=== PATIENT | female | born 1990 | race African-American/Black ===

== ENCOUNTER 2018-04-08 10:56 | Emergency (ER) | payer OTHER ==
--- OUTSIDE RECORDS SUMMARY | 2018-04-08 10:59 | XMS REPORT | Clinical Summary ---
:1990 Author Organization [facility] Address [address] [place] [address] Care Team Providers Name Role Phone Annemarie Mujica DO Primary Care Provider Allergies Active Allergy Reactions Severity Noted Date Comments Codeine 01/14/2016 Swelling Morphine 01/14/2016 Hives Hydrocodone-Acetaminophen 11/28/2017 Nausea Tramadol 01/14/2016 Hives Current Medications Prescription Sig. Disp. Refills Start Date End Date Status pantoprazole Take 40 mg by Active (PROTONIX) 40 MG EC mouth daily. tablet famotidine (PEPCID) 20 Take 20 mg by Active MG tablet mouth 2 (two) times a day. BISMUTH SUBSALICYLATE Take by mouth. Active (MAALOX TOTAL RELIEF, BISMUTH, ORAL) calcium carbonate Chew 1 tablet Active (TUMS) 200 mg calcium daily. (500 mg) chewable tablet MULTIVITAMIN ORAL Take by mouth. Active CALCIUM Take by mouth. Active CARBONATE/VITAMIN D3 (CALCIUM 500 WITH D ORAL) CYANOCOBALAMIN, Take by mouth. Active VITAMIN B-12, (VITAMIN B-12 ORAL) FERROUS SULFATE (IRON Take 29 mg by Active ORAL) mouth. LACTOBACILLUS Take by mouth. Active COMBINATION NO.8 (ADULT PROBIOTIC ORAL) [id number]-[id number]-trbaq-susie-c Active hit-msm 2,500 mcg kit esomeprazole (NexIUM) Take 40 mg by 11/28/2017 Discontinued 40 MG capsule mouth daily before breakfast. 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/28/2017 Encounters Date Type Specialty Care Team Description 12/08/2017 Telephone General Surgery Jose David Knapp MD 12/07/2017 Hospital Encounter Radiology Jose David Knapp Gastroesophageal reflux MD Francisco disease, esophagitis presence not specified 11/28/2017 Office Visit General Surgery Jose David Knapp Gastroesophageal reflux disease, esophagitis presence not specified (Primary Dx); MD Francisco Hernia, hiatal; History of sleeve gastrectomy 11/28/2017 Orders Only General Surgery Jose David Knapp Gastroesophageal reflux MD Francisco disease, esophagitis presence not specified (Primary Dx) after 04/07/2017 Family History Medical History Relation Name Comments Hypertension Mother Relation Name Status Comments Mother Social History Tobacco Use Types Packs/Day Years Used Date Never Smoker Smokeless Tobacco: Never Used Alcohol Use Drinks/Week oz/Week Comments No Sex Assigned at Date Recorded Not on file Last Filed Vital Signs Vital Sign Reading Time Taken Blood Pressure 136/87 11/28/2017 9:52 AM BREAKDOWN PERSON Pulse 79 11/28/2017 9:52 AM BREAKDOWN PERSON Temperature 36.7 C (98 F) 11/28/2017 9:52 AM BREAKDOWN PERSON Respiratory Rate - - Oxygen Saturation - - Inhaled Oxygen Concentration - - Weight 90.7 kg (200 lb) 11/28/2017 9:52 AM BREAKDOWN PERSON Height 170.2 cm (5' 7") 11/28/2017 9:52 AM BREAKDOWN PERSON Body Mass Index 31.32 11/28/2017 9:52 AM BREAKDOWN PERSON Plan of Treatment Health Maintenance Due Date Last Done Comments CERVICAL CANCER SCREENING 2009 INFLUENZA VACCINE 06/07/2018 Results [place] Upper GI (12/07/2017 9:01 AM) Specimen Performing Laboratory [address] [address] Narrative EXAMINATION:[place] UPPER GI CLINICAL HISTORY:K21.9 Gastro-esophageal reflux disease without esophagitis , GERD COMPARISON:None. Fluoroscopy time: 2.3 minutes with 17 fluoroscopic images FINDINGS: Patient ingested thin barium in upright position and recumbent B[place]LETT drinking position without difficulty. There is no esophageal mass or stricture. Esophageal peristalsis is within normal limits. Expected changes are present in the proximal stomach related to Kartik fundoplication. Patient is status post sleeve gastrectomy. There is normal passage of contrast from the esophagus into the stomach. There is no hiatal hernia. No gastroesophageal reflux noted under fluoroscopy. No gastric mass or stricture present. There is normal emptying of the stomach. The opacified duodenum and proximal small bowel loops are unremarkable. A barium tablet was also administered with water. The barium tablet was held up in the distal esophagus but eventually passed into the stomach after drinking additional water. IMPRESSION: Satisfactory appearance status post Kartik fundoplication and sleeve gastrectomy. See above. [facility]-[id number] Procedure Note Hm Interface, Radiology Results Incoming - 12/07/2017 9:25 AM BREAKDOWN PERSON EXAMINATION: [place] UPPER GI CLINICAL HISTORY: K21.9 Gastro-esophageal reflux disease without esophagitis, GERD COMPARISON: None. Fluoroscopy time: 2.3 minutes with 17 fluoroscopic images FINDINGS: Patient ingested thin barium in upright position and recumbent B[place]TT drinking position without difficulty. There is no esophageal mass or stricture. Esophageal peristalsis is within normal limits. Expected changes are present in the proximal stomach related to Kartik fundoplication. Patient is status post sleeve gastrectomy. There is normal passage of contrast from the esophagus into the stomach. There is no hiatal hernia. No gastroesophageal reflux noted under fluoroscopy. No gastric mass or stricture present. There is normal emptying of the stomach. The opacified duodenum and proximal small bowel loops are unremarkable. A barium tablet was also administered with water. The barium tablet was held up in the distal esophagus but eventually passed into the stomach after drinking additional water. IMPRESSION: Satisfactory appearance status post Kartik fundoplication and sleeve gastrectomy. See above. [facility]-[id number] after 04/07/2017 Insurance Payer Benefit Plan / Group Subscriber ID Type Phone Address [employer]ERCIAL [facility] COMMERCIAL xxxxxxxxxxx Commercial Home: [address] [place], [place] [phone] [place] [address]
--- OUTSIDE RECORDS SUMMARY | 2018-04-08 10:59 | XMS REPORT ---
:1990 Author Organization [employer] Care Team Providers Name Role Phone Mujica, Na Provider Role Unavailable Allergies, Adverse Reactions, Alerts Substance Reaction Event Type tramadol Info Not Available Drug Allergy codeine Info Not Available Drug Allergy MORPHINE Info Not Available Drug Allergy Problems Problem Type Condition Code Onset Dates Condition Status Assessment Iron deficiency anemia, unspecified D50.9 Active iron deficiency anemia type Assessment Adult general medical examination Z00.00 Active Assessment History of gastric bypass Z98.84 Active Assessment Fatigue, unspecified type R53.83 Active Problem Iron deficiency anemia, unspecified D50.9 Active iron deficiency anemia type Problem Adult general medical examination Z00.00 Active Problem History of gastric bypass Z98.84 Active Problem PTSD (post-traumatic stress F43.10 Active disorder) Problem Depression with anxiety F41.8 Active Problem Obese E66.9 Active Problem Low back pain M54.5 Active Medications Medication Code Code Instructions Start End Status Dosage System Date Date Ferrous [facility] 20185328146 325 (65 Fe) MG Active 1 tablet Sulfate Orally Once a day Zanaflex [facility] [id number] 2 MG Orally Active 1 capsule Three times a as needed day Sonata [facility] [id number] 10 MG Orally Active 1 capsule Once a day at bedtime as needed Results No Known Results Summary Purpose [employer] Submission
[2018-04-08 12:10] LABS: Absolute Lymphocytes (CBC) 1.2 K/uL (0.7-4.9); Absolute Monocytes 0.6 K/uL (0.1-1.3); Absolute Neutrophil 3.2 K/uL (1.8-8.0); Basophils % 0.5 % (0-1.3); Eosinophils % 0.9 % (0-4.4); Hematocrit 41.2 % (36.0-45.0); Lymphocytes % 23.4 % (15.3-44.8); MCV 93.5 fL (80-100); MPV 8.1 fL (7.6-11.3); Monocytes % 11.8 % (3.3-12.3)
[2018-04-08 12:12] LABS: Urine Bacteria 20-50 /HPF (<20); Urine Culture Reflex Order REFLEXED; Urine RBC <5 /HPF (NONE SEEN)
[2018-04-08] MEDS ORDERED: NA CHLORIDE 0.9% 1,000 ML ONE (12:21)
[2018-04-08] MEDS ORDERED: DIPHENHYDRAMINE 50 MG/ML VIAL ONE (12:21)
[2018-04-08] MEDS ORDERED: METOCLOPRAMIDE 10 MG/2mL INJ ONE (12:21)
[2018-04-08 12:26] LABS: Bicarbonate 28 mEq/L (21-31); Glucose Level 86 mg/dL (65-120); Lipase 24 U/L (22-51); Potassium 3.6 mEq/L (3.6-5.0); Sodium Level 137 mEq/L (135-145)
[2018-04-08 12:32] LABS: ALT/SGPT 16 IU/L (10-60); AST/SGOT 19 IU/L (10-42); Albumin 4.1 g/dL (3.2-5.5); Alkaline Phosphatase 94 IU/L (42-121); Amylase Level 92 U/L (28-100); BUN Blood Urea Nitrogen 7 mg/dL (6-20); Bilirubin Direct 0.1 mg/dL (0-0.2); Bilirubin Total 0.6 mg/dL (0.3-1.2); Protein, Total 7.4 g/dL (6.0-8.3)
[2018-04-08 13:34] LABS: Urine Blood TRACE (NEG); Urine Glucose NEGATIVE (NEG); Urine Protein NEGATIVE (NEG); Urine Specific Gravity 1.015 (1.005-1.030); Urine pH 6.5 (5.0-7.0)
[2018-04-08] MEDS ORDERED: ONDANSETRON 4 MG/2 ML VIAL ONE (14:50)
[2018-04-08] MEDS ORDERED: KETOROLAC 30 MG/ML INJ ONE (14:50)
--- NOTE | 2018-04-08 14:51 | RAD REPORT ---
EXAM DESCRIPTION: US - Abdomen Exam Limited - 04/08/2018 1:30 pm CLINICAL HISTORY: Abdominal pain COMPARISON: CT study December 05 FINDINGS: No gallstones, sludge or other abnormalities within the gallbladder lumen. There is no wal l thickening or pericholecystic fluid. No common duct stone or biliary tree dilatation identified. IMPRESSION: Normal gallbladder and biliary tree ultrasound.
--- NOTE | 2018-04-08 15:10 | RAD REPORT ---
EXAM DESCRIPTION: CT - Abdomen Pelvis W Contrast - 04/08/2018 2:51 pm CLINICAL HISTORY: Abdominal pain, back pain COMPARISON: CT November 2017, CT July 2016 TECHNIQUE: Biphasic, helical CT imaging of the abdomen and pelvis was performed following 100 ml non -ionic IV contrast. Oral contrast was given. All CT scans are performed using dose optimization technique as appropriate and may include automated exposure control or mA/KV adjustment according to patient size. FINDINGS: No suspicious findings in the lung bases. The liver, spleen, and pancreas show no suspicious findings. Gallbladder and biliary tree are also wi thout suspicious finding. Symmetric renal function is seen with no hydronephrosis or suspicious renal mass. No pyelonephritis o r acute renal parenchymal process. Partially filled urinary bladder shows no suspicious finding. Retr oflexed uterus shows no suspicious finding. A 3 centimeter right ovarian cyst is present. Fluid in th e cul-de-sac and adnexa is present. This is upper normal for physiologic fluid. An ovarian cyst ruptu re or leakage would be a primary consideration. Gastric surgical changes are present. No dilated large or small bowel. No appendicitis present. No ma ss or focal wall thickening in the bowel. No free air or pneumatosis. No mass or bulky lymphadenopa thy. No adrenal abnormality. No acute bone findings seen. Lower lumbar degenerative change in the facet joints is present with L5 pars defect. IMPRESSION: No obstruction, free air or surgically emergent finding. Cul-de-sac and adnexal fluid is probably you from cyst rupture or leakage. An emergent SUPERMARKET MANAGER process is not suspected. No acute GI or process seen.
--- NOTE | 2018-04-08 17:03 | ER ---
Nurse's Notes [facility] Name: Veronika Gross Age: 28 yrs Sex: Female : 1990 Arrival Date: 04/08/2018 Time: 11:00 Bed 4 Private MD: Annemarie Mujica Diagnosis: Upper abdominal pain, unspecified;Urinary tract infection, site not specified Presentation: 04/08 11:03 Presenting complaint: Patient states: abd pain, low back pain, temporal and occipital sv headache, blurry vision x 3 days ago. c/o n/v/d. Transition of care: patient was not received from another setting of care. Onset of symptoms was April 05, 2018. 11:03 Method Of Arrival: Ambulatory sv 11:03 Acuity: RADHA 3 sv 11:04 Risk Assessment: Do you want to hurt yourself or someone else? Patient reports no sv desire to harm self or others. Initial Sepsis Screen: Does the patient meet any 2 criteria? No. Patient's initial sepsis screen is negative. Does the patient have a suspected source of infection? No. Patient's initial sepsis screen is negative. Care prior to arrival: None. 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 - Social history:: Smoking status: Patient/guardian denies using tobacco, Patient/guardian denies using alcohol. - Ebola Screening: : No symptoms or risks identified at this time. Screenin:30 Abuse screen: Denies threats or abuse. Denies injuries from another. Nutritional hb screening: No deficits noted. Tuberculosis screening: No symptoms or risk factors identified. Fall Risk None identified. Assessment: 11:15 General: Appears in no apparent distress. Behavior is calm, cooperative. Pain: Pain hb currently is 6 out of 10 on a pain scale. Neuro: Level of Consciousness is awake, alert, obeys commands, Oriented to person, place, time, situation. Cardiovascular: Capillary refill < 3 seconds Patient's skin is warm and dry. Respiratory: Airway is patent Trachea midline Respiratory effort is even, unlabored, Respiratory pattern is regular, symmetrical, Breath sounds are clear bilaterally. GI: Abdomen is non-distended, Bowel sounds present X 4 quads. Abd is soft and non tender X 4 quads. Reports upper abdominal pain, nausea. : No signs and/or symptoms were reported regarding the genitourinary system. EENT: No signs and/or symptoms were reported regarding the EENT system. Derm: No signs and/or symptoms reported regarding the dermatologic system. Skin is intact, is healthy with good turgor, Skin is pink, warm \T\ dry. Musculoskeletal: No signs and/or symptoms reported regarding the musculoskeletal system. 12:00 Reassessment: Patient appears in no apparent distress at this time. No changes from hb previously documented assessment. Patient and/or family updated on plan of care and expected duration. Pain level reassessed. Patient is alert, oriented x 3, equal unlabored respirations, skin warm/dry/pink. 13:00 Reassessment: Patient appears in no apparent distress at this time. Patient and/or hb family updated on plan of care and expected duration. Pain level reassessed. Patient is alert, oriented x 3, equal unlabored respirations, skin warm/dry/pink. 14:00 Reassessment: Patient appears in no apparent distress at this time. No changes from hb previously documented assessment. Patient and/or family updated on plan of care and expected duration. Pain level reassessed. Patient is alert, oriented x 3, equal unlabored respirations, skin warm/dry/pink. 14:35 Reassessment: Pt to CT. hb 14:53 Reassessment: Pt returned from CT, actively vomiting and c/o RUQ pain 8/10. ERP hb notified, toradol and zofran administered as ordered. 15:45 Reassessment: Patient appears in no apparent distress at this time. Patient and/or hb family updated on plan of care and expected duration. Pain level reassessed. Patient is alert, oriented x 3, equal unlabored respirations, skin warm/dry/pink. 16:26 Reassessment: Patient appears in no apparent distress at this time. Patient and/or hb family updated on plan of care and expected duration. Pain level reassessed. Patient is alert, oriented x 3, equal unlabored respirations, skin warm/dry/pink. 17:24 Reassessment: Patient appears in no apparent distress at this time. Patient and/or hb family updated on plan of care and expected duration. Pain level reassessed. Patient is alert, oriented x 3, equal unlabored respirations, skin warm/dry/pink. Patient states feeling better. Patient states symptoms have improved. Vital Signs: 11:06 BP 123 / 86; Pulse 88; Resp 16; Temp 98.2; Pulse Ox 98% ; Weight 83.91 kg; Height 5 ft. sv 7 in. (170.18 cm); Pain 6/10; 12:00 BP 122 / 85; Pulse 85; Resp 16; Pulse Ox 100% on R/A; Pain 6/10; hb 13:00 BP 128 / 89; Pulse 56; Resp 18; Pulse Ox 100% on R/A; dh3 14:00 BP 120 / 83; Pulse 53; Resp 15; Pulse Ox 100% on R/A; hb 14:54 BP 125 / 83; Pulse 79; Resp 15; Pulse Ox 98% on R/A; Pain 8/10; hb 16:25 BP 129 / 89; Pulse 54; Resp 16; Pulse Ox 100% on R/A; hb 17:24 BP 127 / 77; Pulse 55; Resp 15; Pulse Ox 100% on R/A; Pain 2/10; hb 11:06 Body Mass Index 28.97 (83.91 kg, 170.18 cm) sv ED Course: 11:00 Patient arrived in ED. sb2 11:00 Annemarie Mujica MD is Private Physician. sb2 11:05 Triage completed. sv 11:08 Arm band placed on left wrist. sv 11:09 Patient placed in an exam room, on a stretcher. sv 11:16 Yanet Veloz, TASNEEM is Primary Nurse. hb 11:18 Jero Haddad PA is PHCP. jmm 11:19 Dinesh Ortega MD is Attending Physician. jmm 11:20 Patient has correct armband on for positive identification. Placed in gown. Bed in low hb position. Call light in reach. Side rails up X 1. shelter monitor on. Pulse ox on. NIBP on. 12:01 Initial lab(s) drawn, by me, sent to lab. Inserted saline lock: 20 gauge in right dh3 antecubital area, using aseptic technique. Blood collected. 12:50 Ultrasound completed. Patient tolerated well. sg3 12:50 Notified INSTRUCTIONAL COACH/RAAD haddad. sg3 14:51 CT Abd/Pelvis - W/Contrast In Process Unspecified. EDMS 17:24 No provider procedures requiring assistance completed. IV discontinued, intact, hb bleeding controlled, No redness/swelling at site. Pressure dressing applied. Administered Medications: 12:15 Drug: NS 0.9% 1000 ml Route: IV; Rate: 1 bolus; Site: right antecubital; hb 13:15 Follow up: Response: No adverse reaction; IV Status: Completed infusion hb 12:15 Drug: diphenhydrAMINE 12.5 mg Route: IVP; Site: right antecubital; hb 13:00 Follow up: Response: No adverse reaction hb 12:15 Drug: Reglan 10 mg Route: IVP; Site: right antecubital; hb 13:00 Follow up: Response: No adverse reaction hb 14:51 Drug: Ketorolac 30 mg Route: IVP; Site: right antecubital; hb 15:30 Follow up: Response: No adverse reaction; Pain is decreased hb 14:51 Drug: Zofran 4 mg Route: IVP; Site: right antecubital; hb 15:30 Follow up: Response: No adverse reaction hb Outcome: 17:03 Discharge ordered by . kirsty 17:24 Discharged to home ambulatory. hb 17:24 Condition: stable 17:24 Discharge instructions given to patient, Instructed on discharge instructions, follow up and referral plans. medication usage, Demonstrated understanding of instructions, follow-up care, medications, Prescriptions given X 2. 17:26 Patient left the ED. hb Signatures: Dispatcher [employer] Danelle Chacon, RN RN Jero Ibanez PA PA jmm Baxter, Heather, RN RN Christina Ledezma 3 Beryl Argueta 3 Carolyn Apple2 Corrections: (The following items were deleted from the chart) 13:33 13:30 In radiology for Abdomen Limited+[email or web address]. EDMS sg3 14:52 11:06 Allergies: Morphine; sv hb
--- NOTE | 2018-04-08 17:03 | EDPHYS ---
Physician Documentation [facility] Name: Veronika Gross Age: 28 yrs Sex: Female : 1990 Arrival Date: 04/08/2018 Time: 11:00 Bed 4 Private MD: Annemarie Mujica ED Physician Dinesh Ortega HPI: 04/08 11:52 This 28 yrs old Black Female presents to ER via Ambulatory with complaints of Back jmm Pain, Abdominal Pain. 11:54 The patient presents with abdominal pain in the epigastric area. Onset: The jmm symptoms/episode began/occurred gradually, 3 day(s) ago. The symptoms radiate to right back. Associated signs and symptoms: Pertinent positives: nausea and vomiting. Severity of pain: in the emergency department the pain is unchanged. This is a 28/yo female with a HX of gastric bypass performed by Dr. Gume Sauceda in December of 2017 that presents to the ED with 3 days of epigastric abdominal pain with vomiting and radiation to the back. Denies lower abdominal pain, denies fever. . 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 - Social history:: Smoking status: Patient/guardian denies using tobacco, Patient/guardian denies using alcohol. - Ebola Screening: : No symptoms or risks identified at this time. ROS: 11:54 Constitutional: Negative for fever, chills, and weight loss, Cardiovascular: Negative jmm for chest pain, palpitations, and edema, Respiratory: Negative for shortness of breath, cough, wheezing, and pleuritic chest pain. 11:54 Skin: Negative for injury, rash, and discoloration, Neuro: Negative for headache, weakness, numbness, tingling, and seizure. 11:54 Abdomen/GI: Positive for abdominal pain, nausea and vomiting. 11:54 Back: Positive for pain at rest. 11:54 All other systems are negative. Exam: 11:54 Constitutional: This is a well developed, well nourished patient who is awake, alert, jmm and in no acute distress. Chest/axilla: Normal chest wall appearance and motion. Nontender with no deformity. No lesions are appreciated. Cardiovascular: Regular rate and rhythm. No gallops, murmurs, or rubs. Full/Equal distal pulses. Respiratory: Lungs have equal breath sounds bilaterally, clear to auscultation. No rales, rhonchi or wheezes noted. No increased work of breathing, no retractions or nasal flaring. 11:54 Abdomen/GI: Inspection: Palpation: soft, mild abdominal tenderness, in the right upper quadrant and left upper quadrant. Vital Signs: 11:06 BP 123 / 86; Pulse 88; Resp 16; Temp 98.2; Pulse Ox 98% ; Weight 83.91 kg; Height 5 ft. sv 7 in. (170.18 cm); Pain 6/10; 12:00 BP 122 / 85; Pulse 85; Resp 16; Pulse Ox 100% on R/A; Pain 6/10; hb 13:00 BP 128 / 89; Pulse 56; Resp 18; Pulse Ox 100% on R/A; dh3 14:00 BP 120 / 83; Pulse 53; Resp 15; Pulse Ox 100% on R/A; hb 14:54 BP 125 / 83; Pulse 79; Resp 15; Pulse Ox 98% on R/A; Pain 8/10; hb 16:25 BP 129 / 89; Pulse 54; Resp 16; Pulse Ox 100% on R/A; hb 17:24 BP 127 / 77; Pulse 55; Resp 15; Pulse Ox 100% on R/A; Pain 2/10; hb 11:06 Body Mass Index 28.97 (83.91 kg, 170.18 cm) sv MDM: 11:47 Patient medically screened. [facility] 16:03 Data reviewed: vital signs, nurses notes. Physician consultation: Discussed the patient [facility] with Dr. Sauceda whom will follow up with the patient in clinic on Tuesday. . 21:54 Differential diagnosis: bowel obstruction, cholecystitis, Cholelithiasis, gastritis, jmm pancreatitis, Peptic Ulcer Disease. Special discussion: I have referred the patient to see his PCP for further evaluation of high blood pressure. ED course: After administrations of reglan and zofran, the patient was able to tolerate PO in the ED. The patient was able to hold down oral contrast for 1.5 hours. The patients abdomen is soft. Patient is non toxic in appearance. CT imaging shows no signs of obstruction. I discussed the patient's case with her bariatric surgeon along with CT results. Stated he will follow up with the patient is she was able to tolerate fluids by mouth. Due to the patient's abdominal pain on swallowing I offered transfer for quicker evaluation. The patient declined and stated that should will follow up outpatient. The patient is otherwise given return precautions. The patient understood and agrees with the plan of care. . 22:00 Data reviewed: lab test result(s), radiologic studies, CT scan, ultrasound. [facility] 04/08 11:50 Order name: Amylase, Serum; Complete Time: 14:15 04/08 11:50 Order name: Basic Metabolic Panel; Complete Time: 14:15 04/08 11:50 Order name: CBC with Diff; Complete Time: 12:32 04/08 11:50 Order name: Creatinine for Radiology; Complete Time: 12:32 04/08 11:50 Order name: Hepatic Function; Complete Time: 14:16 04/08 11:50 Order name: Lipase; Complete Time: 14:16 04/08 11:50 Order name: Urine Microscopic Only; Complete Time: 14:15 04/08 11:48 Order name: Urine Test (obtain specimen); Complete Time: 11:55 [facility] 04/08 11:48 Order name: IV Saline Lock; Complete Time: 11:56 [facility] 04/08 11:54 Order name: US Abdomen Limited; Complete Time: 15:28 04/08 12:10 Order name: CT Abd/Pelvis - W/Contrast; Complete Time: 15:28 04/08 13:29 Order name: Urine Dipstick--Ancillary (enter results); Complete Time: 14:15 [facility] 04/08 13:29 Order name: Urine --Ancillary (enter results); Complete Time: 14:16 [facility] 04/08 13:35 Order name: Urine Culture [facility] 04/08 11:48 Order name: Labs collected and sent; Complete Time: 11:56 [facility] 04/08 11:48 Order name: Urine Dipstick-Ancillary (obtain specimen); Complete Time: 11:55 [facility] Administered Medications: 12:15 Drug: NS 0.9% 1000 ml Route: IV; Rate: 1 bolus; Site: right antecubital; hb 13:15 Follow up: Response: No adverse reaction; IV Status: Completed infusion hb 12:15 Drug: diphenhydrAMINE 12.5 mg Route: IVP; Site: right antecubital; hb 13:00 Follow up: Response: No adverse reaction hb 12:15 Drug: Reglan 10 mg Route: IVP; Site: right antecubital; hb 13:00 Follow up: Response: No adverse reaction hb 14:51 Drug: Ketorolac 30 mg Route: IVP; Site: right antecubital; hb 15:30 Follow up: Response: No adverse reaction; Pain is decreased hb 14:51 Drug: Zofran 4 mg Route: IVP; Site: right antecubital; hb 15:30 Follow up: Response: No adverse reaction hb Disposition: 04/09 12:38 Co-signature as Attending Physician, Dinesh Ortega MD. Disposition: 04/08/18 17:03 Discharged to Home. Impression: Upper abdominal pain, unspecified, Urinary tract infection, site not specified. - Condition is Stable. - Discharge Instructions: Abdominal Pain, Adult. - Prescriptions for Reglan 10 mg Oral Tablet - take 1 tablet by ORAL route every 6 hours take 30 minutes before meals and at bedtime; 20 tablet. Cipro 500 mg Oral Tablet - take 1 tablet by ORAL route every 12 hours for 7 days; 14 tablet. - Medication Reconciliation Form, Thank You Letter, Antibiotic Education, Prescription Opioid Use form. - Follow up: Private Physician; When: 1 - 2 days; Reason: Re-evaluation by your physician. - Problem is new. - Symptoms have improved. - Notes: Please follow up with Bariatric Surgeon on Tuesday for reevaluation. Please return to the ED if you are unable to tolerate fluids by mouth or if you develop increased abdominal pain. Signatures: Dispatcher [employer] EDMS Danelle Betancur RN RN sv Mickail, Joel, PA PA Yanet Welch RN RN hb Starr, Gregory, MD MD gs Corrections: (The following items were deleted from the chart) 04/08 14:52 11:06 Allergies: Morphine; sv hb 17:12 17:03 04/08/2018 17:03 Discharged to Home. Impression: Upper abdominal pain, jmm unspecified. Condition is Stable. Forms are Medication Reconciliation Form, Thank You Letter, Antibiotic Education, Prescription Opioid Use. Follow up: Private Physician; When: 1 - 2 days; Reason: Re-evaluation by your physician. Problem is new. Symptoms have improved. [facility] 17:26 17:12 04/08/2018 17:03 Discharged to Home. Impression: Upper abdominal pain, hb unspecified; Urinary tract infection, site not specified. Condition is Stable. Discharge Instructions: Abdominal Pain, Adult. Prescriptions for Reglan 10 mg Oral Tablet - take 1 tablet by ORAL route every 6 hours take 30 minutes before meals and at bedtime; 20 tablet. and Forms are Medication Reconciliation Form, Thank You Letter, Antibiotic Education, Prescription Opioid Use. Follow up: Private Physician; When: 1 - 2 days; Reason: Re-evaluation by your physician. Problem is new. Symptoms have improved. [facility]
== END 2018-04-08 17:26 | disposition home or self-care (01) ==
LOC: ER 10:56
DX: N39.0 Urinary tract infection, site not specified (principal); K21.9 Gastro-esophageal reflux disease without esophagitis; Z88.5 Allergy status to narcotic agent; Z88.6 Allergy status to analgesic agent
CPT/HCPCS: 36415; 74177; 76705; 80048; 80076; 81003; 81015; 81025; 82150; 83690; 85025; 87086; 87088; 96361; 96374; 96375; 99284; J2405; J2765; J7030; Q9967

== ENCOUNTER 2018-10-23 11:30 | Day surgery (SDC) | payer OTHER ==
--- OUTSIDE RECORDS SUMMARY | 2018-10-23 11:33 | XMS REPORT | Clinical Summary ---
:1990 Author Organization [facility] [employer] Address [address] [place] [address] Care Team Providers Name Role Phone Annemarie Mujica DO Primary Care Provider Allergies Active Allergy Reactions Severity Noted Date Comments Codeine 01/14/2016 Swelling Morphine 01/14/2016 Hives Hydrocodone-Acetaminophen 11/28/2017 Nausea Tramadol 01/14/2016 Hives Medications Medication Sig Dispensed Refills Start Date End Date Status pantoprazole Take 40 mg by 0 Active (PROTONIX) 40 MG EC mouth daily. tablet famotidine (PEPCID) Take 20 mg by 0 Active 20 MG tablet mouth 2 (two) times a day. BISMUTH Take by 0 Active SUBSALICYLATE mouth. (MAALOX TOTAL RELIEF, BISMUTH, ORAL) calcium carbonate Chew 1 tablet 0 Active (TUMS) 200 mg daily. calcium (500 mg) chewable tablet MULTIVITAMIN ORAL Take by 0 Active mouth. CALCIUM Take by 0 Active CARBONATE/VITAMIN D3 mouth. (CALCIUM 500 WITH D ORAL) CYANOCOBALAMIN, Take by 0 Active VITAMIN B-12, mouth. (VITAMIN B-12 ORAL) FERROUS SULFATE Take 29 mg by 0 Active (IRON ORAL) mouth. LACTOBACILLUS Take by 0 Active COMBINATION NO.8 mouth. (ADULT PROBIOTIC ORAL) [id number]-susie 0 Active -chit-msm 2,500 mcg kit esomeprazole Take 40 mg by 0 11/28/2017 Discontinued (NexIUM) 40 MG mouth daily capsule before breakfast. Active Problems Problem Noted Date [...] esophagitis presence not specified (Primary Dx) after 10/22/2017 Family History Medical History Relation Name Comments Hypertension Mother Relation Name Status Comments Mother Social History Tobacco Use Types Packs/Day Years Used Date Never Smoker Smokeless Tobacco: Never Used Alcohol Use Drinks/Week oz/Week Comments No Sex Assigned at Date Recorded Not on file Job Start Date Occupation Industry Not on file Not on file Not on file Travel History Travel Start Travel End No recent travel history available. Last Filed Vital Signs Vital Sign Reading Time Taken Blood Pressure 136/87 11/28/2017 9:52 AM SIGNAL MANAGER Pulse 79 11/28/2017 9:52 AM SIGNAL MANAGER Temperature 36.7 C (98 F) 11/28/2017 9:52 AM SIGNAL MANAGER Respiratory Rate - - Oxygen Saturation - - Inhaled Oxygen Concentration - - Weight 90.7 kg (200 lb) 11/28/2017 9:52 AM SIGNAL MANAGER Height 170.2 cm (5' 7") 11/28/2017 9:52 AM SIGNAL MANAGER Body Mass Index 31.32 11/28/2017 9:52 AM SIGNAL MANAGER Plan of Treatment Health Maintenance Due Date Last Done Comments CERVICAL CANCER SCREENING 2009 INFLUENZA VACCINE 06/07/2018 Procedures Procedure Name Priority Date/Time Associated Diagnosis Comments FL UPPER GI WO KUB Routine 12/07/2017 9:01 Gastroesophageal reflux Results for this AM SIGNAL MANAGER disease, esophagitis procedure are in presence not specified the results section. after 10/22/2017 Results FL Upper GI (12/07/2017 9:01 AM SIGNAL MANAGER) Narrative Performed At EXAMINATION:[place] UPPER GI [facility] CLINICAL HISTORY:K21.9 Gastro-esophageal reflux disease without esophagitis, GERD COMPARISON:None. Fluoroscopy time: 2.3 minutes with [...] Kartik fundoplication and sleeve gastrectomy. See above. [facility]-[id number] Procedure Note Interface, Radiology Results Incoming - 12/07/2017 9:25 AM SIGNAL MANAGER EXAMINATION: FL UPPER GI CLINICAL HISTORY: K21.9 [...] Kartik fundoplication and sleeve gastrectomy. See above. [facility]-[id number] Performing Organization Address City/State/Zipcode Phone Number [facility] [phone] [place] [address] after 10/22/2017 Insurance Payer Benefit Plan / Group Subscriber ID Type Phone Address COMMERCIAL MISC MISC COMMERCIAL xxxxxxxxxxx Commercial Advance Directives Patient has advance care planning documents on file. For more information, please contact:Giancarlo [id number] [place] [address]
--- OUTSIDE RECORDS SUMMARY | 2018-10-23 11:33 | XMS REPORT | Clinical Summary ---
:[address] [facility] Address [address] [place] [address] Care Team Providers Name Role Phone Annemarie Mujica DO Primary Care Provider Allergies Active Allergy Reactions Severity Noted Date Comments Codeine 01/14/2016 Morphine 01/14/2016 Hydrocodone-Acetaminophen 04/11/2018 Tramadol 01/14/2016 Medications Medication Sig Dispensed Refills Start Date End Date Status metoclopramide HCl Take 10 mg by 0 Active (REGLAN) 10 MG mouth every 6 tablet (six) hours as needed for Nausea. AMOXICILLIN/POTASSIU Take by 0 Discontinued M CLAV (AUGMENTIN mouth. 8 ORAL) ondansetron Take 1 tablet 10 tablet 0 01/14/2016 Discontinued (ZOFRAN-ODT) 4 MG (4 mg total) 8 disintegrating by mouth tablet every 8 (eight) hours as needed for Nausea for up to 10 doses. traMADol (ULTRAM) 50 Take 1 tablet 15 tablet 0 01/14/2016 Discontinued mg tablet (50 mg total) 8 by mouth every 6 (six) hours as needed for Pain (WARNING CAUSES SEDATION) for up to 15 doses. dicyclomine (BENTYL) Take 1 21 capsule 0 04/15/2018 10 MG capsule capsule (10 8 mg total) by mouth 3 (three) times daily for 7 days. ondansetron Take 1 tablet 20 tablet 0 04/15/2018 (ZOFRAN-ODT) 4 MG (4 mg total) 8 disintegrating by mouth tablet every 8 (eight) hours as needed for up to 7 days. magnesium citrate Take 296 mLs 300 mL 0 04/15/2018 solution by mouth once 8 for 1 dose. Active Problems Problem Noted Date SBO (small bowel obstruction) 04/11/2018 Encounters Date Type Specialty Care Team Description 04/11/2018 - Hospital Encounter General Internal Tutu Kaur SBO ( small bowel obstruction) (HCC) (Primary Dx); 04/15/2018 Meg Campoverde MD Gastric bypass status for obesity Nora Morrissey MD Arif, Sahar, MD Kulkarni, Reagan Montano MD after 10/22/2017 Social History Tobacco Use Types Packs/Day Years [...] Vital Sign Reading Time Taken Blood Pressure 124/79 04/15/2018 11:32 AM CDT Pulse 71 04/15/2018 11:32 AM CDT Temperature 36.7 C (98 F) 04/15/2018 11:32 AM CDT Respiratory Rate 18 04/15/2018 11:32 AM CDT Oxygen Saturation 100% 04/15/2018 11:32 AM CDT Inhaled Oxygen Concentration - - Weight 85.7 kg (189 lb) 04/11/2018 4:39 PM CDT Height 170.2 cm (5' 7") 04/11/2018 4:39 PM CDT Body Mass Index 29.6 04/11/2018 4:39 PM CDT Plan of Treatment Not on file Procedures Procedure Name Priority Date/Time Associated Comments Diagnosis CBC W/PLT COUNT & Routine 04/14/2018 5:12 Results for this AUTO DIFFERENTIAL AM CDT procedure are in the results section. CBC W/PLT COUNT & Routine 04/14/2018 5:12 Results for this AUTO DIFFERENTIAL AM CDT procedure are in the results section. BASIC METABOLIC PANEL Routine 04/14/2018 5:12 Results for this (7) AM CDT procedure are in the results section. CBC W/PLT COUNT & Routine 04/13/2018 5:34 Results for this AUTO DIFFERENTIAL AM CDT procedure are in the results section. CBC W/PLT COUNT & Routine 04/13/2018 5:34 Results for this AUTO DIFFERENTIAL AM CDT procedure are in the results section. BASIC METABOLIC PANEL Routine 04/13/2018 5:34 Results for this (7) AM CDT procedure are in the results section. US ABDOMEN COMPLETE Routine 04/13/2018 4:00 Results for this AM CDT procedure are in the results section. CBC W/PLT COUNT & Routine 04/12/2018 3:03 Results for this AUTO DIFFERENTIAL AM CDT procedure are in the results section. CBC W/PLT COUNT & Routine 04/12/2018 3:03 Results for this AUTO DIFFERENTIAL AM CDT procedure are in the results section. BASIC METABOLIC PANEL Routine 04/12/2018 3:03 Results for this (7) AM CDT procedure are in the results section. CT ABDOMEN/PELVIS STAT 04/11/2018 10:28 Results for this WITH IV CONTRAST PM CDT procedure are in the results section. SCREEN, STAT 04/11/2018 8:58 Results for this URINE PM CDT procedure are in the results section. URINALYSIS W/ REFLEX STAT 04/11/2018 8:58 Results for this URINE CULTURE PM CDT procedure are in the results section. URINE CULTURE STAT 04/11/2018 8:58 Results for this PM CDT procedure are in the results section. CBC W/PLT COUNT & STAT 04/11/2018 8:45 Results for this AUTO DIFFERENTIAL PM CDT procedure are in the results section. LIPASE STAT 04/11/2018 8:45 Results for this PM CDT procedure are in the results section. HEPATIC FUNCTION STAT 04/11/2018 8:45 Results for this PANEL PM CDT procedure are in the results section. BASIC METABOLIC PANEL STAT 04/11/2018 8:45 Results for this (7) PM CDT procedure are in the results section. CBC W/PLT COUNT & STAT 04/11/2018 8:45 Results for this AUTO DIFFERENTIAL PM CDT procedure are in the results section. after 10/22/2017 Results CBC with platelet count + automated diff (04/14/2018 5:12 AM CDT)Only the most recent of4 resultswithin the time period is included. WBC 4.4 3.5 - 10.5 K/L [facility] RBC 4.12 3.93 - 5.22 M/L [facility] Hemoglobin 12.9 11.2 - 15.7 GM/DL [facility] Hematocrit 39.9 34.1 - 44.9 % [facility] MCV 96.8 (H) 79.4 - 94.8 fL [facility] MCH 31.3 25.6 - 32.2 pg [facility] MCHC 32.3 32.2 - 35.5 GM/DL [facility] RDW 14.5 (H) 11.7 - 14.4 % [facility] Platelets 185 150 - 450 K/CU MM [facility] MPV 9.6 9.4 - 12.3 fL [facility] nRBC 0 0 - 0 /100 WBC [facility] % Neutros 61 % [facility] % Lymphs 29 % [facility] % Monos 8 % [facility] % Eos 2 % [facility] % Baso 0 % [facility] # Neutros 2.69 1.56 - 6.13 K/L [facility] # Lymphs 1.29 1.18 - 3.74 K/L [facility] # Monos 0.35 0.24 - 0.36 K/L [facility] # Eos 0.09 0.04 - 0.36 K/L [facility] # Baso 0.01 0.01 - 0.08 K/L [facility] Immature Granulocytes-Relative 0 0 - 1 % [facility] Specimen Blood Performing Organization Address City/State/Zipcode Phone Number [facility] [address] [place] [address] [phone] CENTER Basic metabolic panel (04/14/2018 5:12 AM CDT)Only the most recent of4 resultswithin the time period is included. Sodium 139 136 - 145 meq/L [facility] Potassium 3.9 3.5 - 5.1 meq/L [facility] Chloride 104 98 - 107 meq/L [facility] CO2 28 22 - 29 meq/L [facility] BUN 6 (L) 7 - 21 mg/dL [facility] Creatinine 0.75 0.57 - 1.25 mg/dL [facility] Glucose 112 (H) 70 - 105 mg/dL [facility] Calcium 8.8 8.4 - 10.2 mg/dL [facility] EGFR 110Comment: ESTIMATED GFR IS mL/min/1.73 sq m [facility] NOT ACCURATE [facility] CLEARANCE IN PREDICTING GLOMERULAR FILTRATION RATE. ESTIMATED GFR IS NOT APPLICABLE FOR DIALYSIS PATIENTS. Specimen Blood Performing Organization Address City/State/Zipcode Phone Number [facility] [address] [place] [address] CENTER US abdomen complete (04/13/2018 4:00 AM CDT) Narrative Performed At FINAL REPORT [facility] Ultrasound of the Abdomen, complete Clinical History:evaluate gall stone disease Discussion: Sonographic evaluation of the abdomen was performed. There is no prior study for direct comparison. Correlation is made with CT abdomen and pelvis 04/11/2018. Liver: 14.2 cm in length at the right midclavicular line.Normal echogenicity.No lesion is identified by ultrasound.Main portal vein diameter 1.0 cm. There is hepatopetal flow in the main portal vein. Biliary tree: No extrahepatic or intrahepatic biliary ductal dilatation.Common duct 3 mm. Gallbladder:No shadowing calculus/calculi. No wall thickening. No pericholecystic fluid. Negative sonographic Rocha's sign. Pancreas: Partially visualized, unremarkable. Ascites:None seen Spleen:10 cm in length. Kidneys: Right kidney 10.7 x 4.1 x 5.9 cm with cortical thickness of 1.6 cm.Left kidney 10.8 x 6.8 x 5.9 cm with cortical thickness of 2 cm. cm.Normal echogenicity . No shadowing calculus or hydronephrosis. IVC/Aorta:Segments partially seen.Unremarkable. Impression: Sonographically normal gallbladder. No biliary ductal dilatation. Signed: Joyce Vaz MD Report Verified Date/Time:04/13/2018 05:20:11 Reading Location: [address] Transitional Reading Room Procedure Note Interface, External Ris In - 04/13/2018 5:22 AM CDT FINAL REPORT Ultrasound of the Abdomen, complete Clinical History: evaluate gall stone disease Discussion: Sonographic evaluation of the abdomen was performed. There is no prior study for direct comparison. Correlation is made with CT abdomen and pelvis 04/11/2018. Liver: 14.2 cm in length at the right midclavicular line. Normal echogenicity. No lesion is identified by ultrasound. Main portal vein diameter 1.0 cm. There is hepatopetal flow in the main portal vein. Biliary tree: No extrahepatic or intrahepatic biliary ductal dilatation. Common duct 3 mm. Gallbladder: No shadowing calculus/calculi. No wall thickening. No pericholecystic fluid. Negative sonographic Rocha's sign. Pancreas: Partially visualized, unremarkable. Ascites: None seen Spleen: 10 cm in length. Kidneys: Right kidney 10.7 x 4.1 x 5.9 cm with cortical thickness of 1.6 cm. Left kidney 10.8 x 6.8 x 5.9 cm with cortical thickness of 2 cm. cm. Normal echogenicity . No shadowing calculus or hydronephrosis. IVC/Aorta: Segments partially seen. Unremarkable. Impression: Sonographically normal gallbladder. No biliary ductal dilatation. Signed: Joyce Vaz MD Report Verified Date/Time: 04/13/2018 05:20:11 Reading Location: [facility] Transitional Reading Room Performing Organization Address City/State/Zipcode Phone Number [facility] CT abdomen pelvis with IV contrast (04/11/2018 10:28 PM CDT) Narrative Performed At FINAL REPORT GE RIS CT of the abdomen and pelvis, 04/11/2018. History: Abdominal pain Comparison: None available. Technique: Multidetector CT scanning of the abdomen and pelvis was performed from the level of the lung bases to the inferior pubic ramus, with intravenous administration of non-ionic contrast and with oral contrast. This examination was performed in accordance with a departmental dose optimization program which includes automated exposure control, adjustment of the mA and/or kV according to patient size, and use of iterative reconstruction techniques. Discussion: Imaged lung bases are unremarkable. Solid abdominal organs and gallbladder are unremarkable. No biliary ductal dilatation. Abdominal aorta normal in caliber. Portal vein is not well assessed due to contrast bolus timing. Status post gastric bypass. There is a dilated loop of bowel upstream from the anastomotic suture in the right lower quadrant. Colon unremarkable. Uterus unremarkable. No adnexal lesions. Trace free fluid in the pelvis. No adenopathy. No worrisome skeletal findings. IMPRESSION: Gastric bypass with dilated loop of small bowel in the right lower quadrant proximal to the anastomotic sutures. This could reflect developing small bowel obstruction. Signed: Arvin Trevino MD Report Verified Date/Time:04/11/2018 22:44:10 Reading Location: [address] Consult Reading Room Procedure Note Interface, External Ris In - 04/11/2018 10:[address] RE[address] CT of the abdomen and pelvis, 04/11/2018. History: Abdominal pain Comparison: None available. Technique: Multidetector CT scanning of the abdomen and pelvis was performed from the level of the lung bases to the inferior pubic ramus, with intravenous administration of non-ionic contrast and with oral contrast. This examination was performed in accordance with a departmental dose optimization program which includes automated exposure control, adjustment of the mA and/or kV according to patient size, and use of iterative reconstruction techniques. Discussion: Imaged lung bases are unremarkable. Solid abdominal organs and gallbladder are unremarkable. No biliary ductal dilatation. Abdominal aorta normal in caliber. Portal vein is not well assessed due to contrast bolus timing. Status post gastric bypass. There is a dilated loop of bowel upstream from the anastomotic suture in the right lower quadrant. Colon unremarkable. Uterus unremarkable. No adnexal lesions. Trace free fluid in the pelvis. No adenopathy. No worrisome skeletal findings. IMPRESSION: Gastric bypass with dilated loop of small bowel in the right lower quadrant proximal to the anastomotic sutures. This could reflect developing small bowel obstruction. Signed: Arvin Trevino MD Report Verified Date/Time: 04/11/2018 22:44:10 Reading Location: [facility] [id number] Consult Reading Room Performing Organization Address City/[facility] Phone Number [facility] Urinalysis w/Microscopic + Reflex to Culture - Clear Catch (04/11/2018 8:58 PM CDT) Color, UA Yellow [facility] Clarity, UA Hazy [facility] Specific [place], UA 1.024 1.001 - 1.035 [facility] pH, UA 6.0 5.0 - 8.0 [facility] Protein, UA 30 mg/dL (A) Negative [facility] Glucose, UA Negative Negative [facility] Ketones, UA 10 mg/dL (A) Negative [facility] Bilirubin, UA Negative Negative [facility] Blood, UA Negative Negative [facility] Nitrite, UA Negative Negative [facility] Leukocytes, UA Moderate (A) Negative [facility] Urobilinogen, UA 2.0 (H) 0.2 - 1.0 mg/dL [facility] RBC, UA 3 /HPF [facility] WBC, UA 5 /HPF [facility] Mucus Many [facility] Squam Epithel, UA 7 /HPF [facility] Crystals, Urine Rare [facility] Specimen Source [facility] Specimen Urine - Urine, Clean Catch Performing Organization Address [facility]/Zipcode Phone Number [address] [address] [phone] [place] screen, urine (04/11/2018 8:58 PM CDT) Preg Test, Ur Negative [facility] Specimen Urine - Urine, Clean Catch Performing Organization Address [facility] Phone Number [address] [address] [phone] [place] Urine culture (04/11/2018 8:58 PM CDT) Result No growth [facility] Specimen Urine - Urine, Clean Catch Performing Organization Address [facility] Phone Number [address] [address] [place] Lipase (04/11/2018 8:45 PM CDT) Lipase 18 8 - 78 U/L [facility] Specimen Blood Performing Organization Address [facility] Phone Number [address] [address] [place] Hepatic function panel (04/11/2018 8:45 PM CDT) Protein, Total 8.1 6.0 - 8.3 gm/dL [facility] Albumin 4.7 3.5 - 5.0 g/dL [facility] Total Bilirubin 0.6 0.2 - 1.2 mg/dL [facility] Bilirubin, Direct 0.3 0.1 - 0.5 mg/dL [facility] Alkaline Phosphatase 110 40 - 150 U/L [facility] AST 15 5 - 34 U/L [facility] ALT 16 6 - 55 U/L [facility] Specimen Blood Performing Organization Address [facility] Phone Number [address] [address] CENTER after 10/22/2017 Insurance Payer Benefit Plan / Group Subscriber ID Type Phone Address [place] xxxxxxxxxxx PPO Advance Directives For more information, please contact:[address] [phone] Code Status Date Activated Date Inactivated Comments Full Code 04/12/2018 12:52 AM 04/15/2018 3:45 PM This code status was determined by: Patient
--- OUTSIDE RECORDS SUMMARY | 2018-10-23 11:33 | XMS REPORT ---
:1990 [facility] Address [address] [place] [address] Care Team Providers Name Role Phone REYNALDO MILLER Unavailable Unavailable Problems This patient has no known problems. Allergies, Adverse Reactions, Alerts This patient has no known allergies or adverse reactions. Medications This patient has no known medications. Results Test Description Test Time Test Comments Text Results Atomic Results Result Comments BASIC METABOLIC PANEL 2018-04-14 06:32:00 Test Item Value Reference Range Comments SODIUM (BEAKER) (test 139 meq/L 136-145 vdpa=830) POTASSIUM (BEAKER) (test 3.9 meq/L 3.5-5.1 ekeq=825) CHLORIDE (BEAKER) (test 104 meq/L 98-107 ttca=486) CO2 (BEAKER) (test 28 meq/L 22-29 brrl=601) BLOOD UREA NITROGEN 6 mg/dL 7-21 (BEAKER) (test krap=696) CREATININE (BEAKER) (test 0.75 mg/dL 0.57-1.25 olcy=270) GLUCOSE RANDOM (BEAKER) 112 mg/dL 70-105 (test hohr=840) CALCIUM (BEAKER) (test 8.8 mg/dL 8.4-10.2 kdvq=086) EGFR (BEAKER) (test 110 mL/min/1.73 sq m ESTIMATED GFR IS NOT xjys=6917) ACCURATE CREATININE CLEARANCE IN PREDICTING GLOMERULAR FILTRATION RATE. ESTIMATED GFR IS NOT APPLICABLE FOR DIALYSIS PATIENTS. CBC W/PLT COUNT & AUTO [id number] 05:48:00 Test Item Value Reference Range Comments WHITE BLOOD CELL COUNT (BEAKER) (test axdu=642) 4.4 K/ L 3.5-10.5 RED BLOOD CELL COUNT (BEAKER) (test apdg=768) 4.12 M/ L 3.93-5.22 HEMOGLOBIN (BEAKER) (test mzya=382) 12.9 GM/DL 11.2-15.7 HEMATOCRIT (BEAKER) (test pcmd=166) 39.9 % 34.1-44.9 MEAN CORPUSCULAR VOLUME (BEAKER) (test owmz=877) 96.8 fL 79.4-94.8 MEAN CORPUSCULAR HEMOGLOBIN (BEAKER) (test 31.3 pg 25.6-32.2 abid=870) MEAN CORPUSCULAR HEMOGLOBIN CONC (BEAKER) (test 32.3 GM/DL 32.2-35.5 lhro=261) RED CELL DISTRIBUTION WIDTH (BEAKER) (test 14.5 % 11.7-14.4 gwla=992) PLATELET COUNT (BEAKER) (test ende=747) 185 K/CU MM 150-450 MEAN PLATELET VOLUME (BEAKER) (test pdlv=646) 9.6 fL 9.4-12.3 NUCLEATED RED BLOOD CELLS (BEAKER) (test 0 /100 WBC 0-0 mdwd=442) NEUTROPHILS RELATIVE PERCENT (BEAKER) (test 61 % fnfz=907) LYMPHOCYTES RELATIVE PERCENT (BEAKER) (test 29 % rkun=802) MONOCYTES RELATIVE PERCENT (BEAKER) (test 8 % hrja=482) EOSINOPHILS RELATIVE PERCENT (BEAKER) (test 2 % esut=419) BASOPHILS RELATIVE PERCENT (BEAKER) (test 0 % pmkm=516) NEUTROPHILS ABSOLUTE COUNT (BEAKER) (test 2.69 K/ L 1.56-6.13 nhrw=385) LYMPHOCYTES ABSOLUTE COUNT (BEAKER) (test 1.29 K/ L 1.18-3.74 zvza=403) MONOCYTES ABSOLUTE COUNT (BEAKER) (test 0.35 K/ L 0.24-0.36 wrhe=710) EOSINOPHILS ABSOLUTE COUNT (BEAKER) (test 0.09 K/ L 0.04-0.36 cgul=223) BASOPHILS ABSOLUTE COUNT (BEAKER) (test 0.01 K/ L 0.01-0.08 bbyr=213) IMMATURE GRANULOCYTES-RELATIVE PERCENT (BEAKER) 0 % 0-1 (test kexi=6624) BASIC METABOLIC [id number] 06:47:00 Test Item Value Reference Range Comments SODIUM (BEAKER) (test 136 meq/L 136-145 vmqd=533) POTASSIUM (BEAKER) (test 3.9 meq/L 3.5-5.1 fevp=026) CHLORIDE (BEAKER) (test 106 meq/L 98-107 toex=597) CO2 (BEAKER) (test 24 meq/L 22-29 mkgq=047) BLOOD UREA NITROGEN 4 mg/dL 7-21 (BEAKER) (test wxvf=289) CREATININE (BEAKER) (test 0.74 mg/dL 0.57-1.25 ytnv=872) GLUCOSE RANDOM (BEAKER) 82 mg/dL 70-105 (test hdhi=650) CALCIUM (BEAKER) (test 8.6 mg/dL 8.4-10.2 mgmy=286) EGFR (BEAKER) (test 112 mL/min/1.73 sq m ESTIMATED GFR IS NOT iygb=0473) ACCURATE CREATININE CLEARANCE IN PREDICTING GLOMERULAR FILTRATION RATE. ESTIMATED GFR IS NOT APPLICABLE FOR DIALYSIS PATIENTS. CBC W/PLT COUNT & AUTO [id number] 06:13:00 Test Item Value Reference Range Comments WHITE BLOOD CELL COUNT (BEAKER) (test mpan=100) 3.1 K/ L 3.5-10.5 RED BLOOD CELL COUNT (BEAKER) (test faje=202) 3.94 M/ L 3.93-5.22 HEMOGLOBIN (BEAKER) (test xzdo=087) 12.3 GM/DL 11.2-15.7 HEMATOCRIT (BEAKER) (test riqe=870) 37.9 % 34.1-44.9 MEAN CORPUSCULAR VOLUME (BEAKER) (test eoab=722) 96.2 fL 79.4-94.8 MEAN CORPUSCULAR HEMOGLOBIN (BEAKER) (test 31.2 pg 25.6-32.2 wwmj=872) MEAN CORPUSCULAR HEMOGLOBIN CONC (BEAKER) (test 32.5 GM/DL 32.2-35.5 dtjv=008) RED CELL DISTRIBUTION WIDTH (BEAKER) (test 14.6 % 11.7-14.4 jwtl=159) PLATELET COUNT (BEAKER) (test ptfl=657) 194 K/CU MM 150-450 MEAN PLATELET VOLUME (BEAKER) (test gdiz=292) 10.0 fL 9.4-12.3 NUCLEATED RED BLOOD CELLS (BEAKER) (test 0 /100 WBC 0-0 gate=805) NEUTROPHILS RELATIVE PERCENT (BEAKER) (test 48 % klgx=232) LYMPHOCYTES RELATIVE PERCENT (BEAKER) (test 36 % sixm=591) MONOCYTES RELATIVE PERCENT (BEAKER) (test 12 % jlhp=989) EOSINOPHILS RELATIVE PERCENT (BEAKER) (test 4 % ynhd=077) BASOPHILS RELATIVE PERCENT (BEAKER) (test 1 % syvc=196) NEUTROPHILS ABSOLUTE COUNT (BEAKER) (test 1.50 K/ L 1.56-6.13 djxr=433) LYMPHOCYTES ABSOLUTE COUNT (BEAKER) (test 1.12 K/ L 1.18-3.74 rlvd=361) MONOCYTES ABSOLUTE COUNT (BEAKER) (test 0.38 K/ L 0.24-0.36 mpzn=385) EOSINOPHILS ABSOLUTE COUNT (BEAKER) (test 0.11 K/ L 0.04-0.36 xhbv=650) BASOPHILS ABSOLUTE COUNT (BEAKER) (test 0.02 K/ L 0.01-0.08 btaj=350) IMMATURE GRANULOCYTES-RELATIVE PERCENT (BEAKER) 0 % 0-1 (test wbqn=3010) U/S, ABDOMINAL, [id number] 05:20:00Reason for exam:->evaluate gall stone diseaseFINAL REPORT Ultrasound of the Abdomen, complete Clinical History: evaluategall stone disease Discussion: Sonographic evaluation of the abdomen was performed. There is no prior study for direct comparison. Correlation is made with CT abdomen and pelvis 04/11/2018. Liver: 14.2cm in length at the right midclavicular line. Normal echogenicity. No lesion is identified by ultrasound. Main portal vein diameter 1.0 cm. There is hepatopetal flow in the main portal vein. Biliary tree: No extrahepatic or intrahepatic biliary ductal dilatation. Common duct 3 mm. Gallbladder: No shadowing calculus/calculi. No wall thickening. No pericholecystic fluid. Negative sonographicMurphy's sign. Pancreas: Partially visualized, unremarkable. Ascites: None seen Spleen: 10 cm inlength. Kidneys: Right kidney 10.7 x 4.1 x 5.9 cm with cortical thickness of 1.6 cm. Left gcmekv97.8 x 6.8 x 5.9 cm with cortical thickness of 2 cm. cm. Normal echogenicity . No shadowing calculus or hydronephrosis. IVC/Aorta: Segments partially seen. Unremarkable. Impression: Sonographically normal gallbladder. No biliary ductal dilatation. Signed: Joyce Vaz MDReport Verified Date/Time: 04/13/2018 05:20 :11 Reading Location: [facility] C013T Transitional Reading Room BASIC METABOLIC [id number] 04:02:00 Test Item Value Reference Range Comments SODIUM (BEAKER) (test 137 meq/L 136-145 ntvt=103) POTASSIUM (BEAKER) (test 3.9 meq/L 3.5-5.1 ifpv=485) CHLORIDE (BEAKER) (test 104 meq/L 98-107 anda=959) CO2 (BEAKER) (test 26 meq/L 22-29 nkon=095) BLOOD UREA NITROGEN 8 mg/dL 7-21 (BEAKER) (test iled=257) CREATININE (BEAKER) (test 0.69 mg/dL 0.57-1.25 mhvk=268) GLUCOSE RANDOM (BEAKER) 84 mg/dL 70-105 (test hsnr=330) CALCIUM (BEAKER) (test 8.7 mg/dL 8.4-10.2 hcre=576) EGFR (BEAKER) (test 121 mL/min/1.73 sq m ESTIMATED GFR IS NOT oeom=1732) ACCURATE CREATININE CLEARANCE IN PREDICTING GLOMERULAR FILTRATION RATE. ESTIMATED GFR IS NOT APPLICABLE FOR DIALYSIS PATIENTS. CBC W/PLT COUNT & AUTO [id number] 03:47:00 Test Item Value Reference Range Comments WHITE BLOOD CELL COUNT (BEAKER) (test kbuh=559) 5.4 K/ L 3.5-10.5 RED BLOOD CELL COUNT (BEAKER) (test fxxq=794) 3.89 M/ L 3.93-5.22 HEMOGLOBIN (BEAKER) (test hfga=951) 12.2 GM/DL 11.2-15.7 HEMATOCRIT (BEAKER) (test dlus=874) 37.3 % 34.1-44.9 MEAN CORPUSCULAR VOLUME (BEAKER) (test cfcf=953) 95.9 fL 79.4-94.8 MEAN CORPUSCULAR HEMOGLOBIN (BEAKER) (test 31.4 pg 25.6-32.2 blmz=106) MEAN CORPUSCULAR HEMOGLOBIN CONC (BEAKER) (test 32.7 GM/DL 32.2-35.5 shtc=833) RED CELL DISTRIBUTION WIDTH (BEAKER) (test 14.6 % 11.7-14.4 zyxj=369) PLATELET COUNT (BEAKER) (test owlc=792) 206 K/CU MM 150-450 MEAN PLATELET VOLUME (BEAKER) (test bykq=664) 10.0 fL 9.4-12.3 NUCLEATED RED BLOOD CELLS (BEAKER) (test 0 /100 WBC 0-0 eaff=254) NEUTROPHILS RELATIVE PERCENT (BEAKER) (test 58 % nkvk=306) LYMPHOCYTES RELATIVE PERCENT (BEAKER) (test 29 % dwgf=518) MONOCYTES RELATIVE PERCENT (BEAKER) (test 12 % nhpv=575) EOSINOPHILS RELATIVE PERCENT (BEAKER) (test 1 % luak=903) BASOPHILS RELATIVE PERCENT (BEAKER) (test 0 % opbx=930) NEUTROPHILS ABSOLUTE COUNT (BEAKER) (test 3.13 K/ L 1.56-6.13 nxjz=358) LYMPHOCYTES ABSOLUTE COUNT (BEAKER) (test 1.56 K/ L 1.18-3.74 rapz=445) MONOCYTES ABSOLUTE COUNT (BEAKER) (test 0.64 K/ L 0.24-0.36 gszy=480) EOSINOPHILS ABSOLUTE COUNT (BEAKER) (test 0.06 K/ L 0.04-0.36 eoyi=650) BASOPHILS ABSOLUTE COUNT (BEAKER) (test 0.01 K/ L 0.01-0.08 hmhi=077) IMMATURE GRANULOCYTES-RELATIVE PERCENT (BEAKER) 0 % 0-1 (test gpbi=5066) CT, [id number] 22:44:00Reason for exam:->ABDOMINAL PAINReason for exam :->BACK PAINIs the patient ?->NoWhatis the patient's sedation requirement?->No SedationFINAL REPORT CT of the abdomen and pelvis, 04/11/2018. History: Abdominalpain Comparison: None available. Technique: Multidetector CT scanning of the abdomen and pelvis was performed from the level of thelung bases to the inferior pubic ramus, with [...] not well assessed due to contrast bolus timing.Status post gastric bypass. There is a dilated loop of bowel upstream from the anastomotic suture inthe right lower quadrant. Colon unremarkable. Uterus unremarkable. No adnexal lesions. Trace free fluid in the pelvis. No adenopathy. No worrisome skeletal findings. IMPRESSION:Gastric bypass with dilated loop of small bowel in the right lower quadrant proximal to the anastomotic sutures. This could reflect developing small bowel obstruction. Signed: Arvin Trevino MDReport Verified Date/Time: 04/11/2018 22:44:10 Reading Location: [facility] C013W Consult Reading Room [id number] 21:11:00 Test Item Value Reference Range Comments LIPASE (BEAKER) (test knqa=093) 18 U/L 8-78 BASIC METABOLIC [id number] 21:11:00 Test Item Value Reference Range Comments SODIUM (BEAKER) (test 137 meq/L 136-145 jydv=748) POTASSIUM (BEAKER) (test 4.0 meq/L 3.5-5.1 cudl=133) CHLORIDE (BEAKER) (test 102 meq/L 98-107 vcdi=106) CO2 (BEAKER) (test 26 meq/L 22-29 qyzj=141) BLOOD UREA NITROGEN 10 mg/dL 7-21 (BEAKER) (test vvgh=554) CREATININE (BEAKER) (test 0.76 mg/dL 0.57-1.25 hdsr=432) GLUCOSE RANDOM (BEAKER) 95 mg/dL 70-105 (test qrnp=150) CALCIUM (BEAKER) (test 9.3 mg/dL 8.4-10.2 htfm=719) EGFR (BEAKER) (test 108 mL/min/1.73 sq m ESTIMATED GFR IS NOT gswz=9153) ACCURATE CREATININE CLEARANCE IN PREDICTING GLOMERULAR FILTRATION RATE. ESTIMATED GFR IS NOT APPLICABLE FOR DIALYSIS PATIENTS. HEPATIC FUNCTION [id number] 21:11:00 Test Item Value Reference Range Comments TOTAL PROTEIN (BEAKER) (test ujxp=877) 8.1 gm/dL 6.0-8.3 ALBUMIN (BEAKER) (test yrzb=5115) 4.7 g/dL 3.5-5.0 BILIRUBIN TOTAL (BEAKER) (test nkrw=736) 0.6 mg/dL 0.2-1.2 BILIRUBIN DIRECT (BEAKER) (test psbq=938) 0.3 mg/dL 0.1-0.5 ALKALINE PHOSPHATASE (BEAKER) (test jypn=862) 110 U/L 40-150 AST (SGOT) (BEAKER) (test qzsm=500) 15 U/L 5-34 ALT (SGPT) (BEAKER) (test twfa=645) 16 U/L 6-55 SCREEN, [id number] 21:09:00 Test Item Value Reference Range Comments TEST URINE (BEAKER) (test rivr=744) Negative URINALYSIS W/ REFLEX URINE [id number] 21:07:00 Test Item Value Reference Range Comments COLOR (BEAKER) (test jcrh=303) Yellow CLARITY (BEAKER) (test slbn=511) Hazy SPECIFIC GRAVITY UA (BEAKER) (test csuq=428) 1.024 1.001-1.035 PH UA (BEAKER) (test bzmn=914) 6.0 5.0-8.0 PROTEIN UA (BEAKER) (test pyul=853) 30 mg/dL Negative GLUCOSE UA (BEAKER) (test ybcx=327) Negative Negative KETONES UA (BEAKER) (test prvx=926) 10 mg/dL Negative BILIRUBIN UA (BEAKER) (test qmwy=056) Negative Negative BLOOD UA (BEAKER) (test cgwj=329) Negative Negative NITRITE UA (BEAKER) (test fpyj=614) Negative Negative LEUKOCYTE ESTERASE UA (BEAKER) (test ylxj=219) Moderate Negative UROBILINOGEN UA (BEAKER) (test hdbi=676) 2.0 mg/dL 0.2-1.0 RBC UA (BEAKER) (test mykz=293) 3 /HPF WBC UA (BEAKER) (test xbua=841) 5 /HPF MUCUS (BEAKER) (test fayw=4114) Many SQUAMOUS EPITHELIAL (BEAKER) (test quuh=672) 7 /HPF CRYSTALS, URINE (BEAKER) (test ohgs=9599) Rare SOURCE(BEAKER) (test rpiz=0437) CBC W/PLT COUNT & AUTO [id number] 20:55:00 Test Item Value Reference Range Comments WHITE BLOOD CELL COUNT (BEAKER) (test ospi=375) 6.4 K/ L 3.5-10.5 RED BLOOD CELL COUNT (BEAKER) (test zcrw=598) 4.48 M/ L 3.93-5.22 HEMOGLOBIN (BEAKER) (test icne=661) 14.0 GM/DL 11.2-15.7 HEMATOCRIT (BEAKER) (test xhib=441) 43.0 % 34.1-44.9 MEAN CORPUSCULAR VOLUME (BEAKER) (test oatl=237) 96.0 fL 79.4-94.8 MEAN CORPUSCULAR HEMOGLOBIN (BEAKER) (test 31.3 pg 25.6-32.2 lsfj=102) MEAN CORPUSCULAR HEMOGLOBIN CONC (BEAKER) (test 32.6 GM/DL 32.2-35.5 judz=146) RED CELL DISTRIBUTION WIDTH (BEAKER) (test 14.7 % 11.7-14.4 lvsp=655) PLATELET COUNT (BEAKER) (test lkec=921) 230 K/CU MM 150-450 MEAN PLATELET VOLUME (BEAKER) (test pgnb=434) 9.4 fL 9.4-12.3 NUCLEATED RED BLOOD CELLS (BEAKER) (test 0 /100 WBC 0-0 plac=343) NEUTROPHILS RELATIVE PERCENT (BEAKER) (test 61 % pnpq=185) LYMPHOCYTES RELATIVE PERCENT (BEAKER) (test 27 % shwz=475) MONOCYTES RELATIVE PERCENT (BEAKER) (test 11 % dxzv=822) EOSINOPHILS RELATIVE PERCENT (BEAKER) (test 1 % kdfq=751) BASOPHILS RELATIVE PERCENT (BEAKER) (test 1 % fvzm=666) NEUTROPHILS ABSOLUTE COUNT (BEAKER) (test 3.88 K/ L 1.56-6.13 gbtw=456) LYMPHOCYTES ABSOLUTE COUNT (BEAKER) (test 1.72 K/ L 1.18-3.74 zoqn=559) MONOCYTES ABSOLUTE COUNT (BEAKER) (test 0.70 K/ L 0.24-0.36 qnor=241) EOSINOPHILS ABSOLUTE COUNT (BEAKER) (test 0.05 K/ L 0.04-0.36 thnn=063) BASOPHILS ABSOLUTE COUNT (BEAKER) (test 0.03 K/ L 0.01-0.08 lirr=513) IMMATURE GRANULOCYTES-RELATIVE PERCENT (BEAKER) 0 % 0-1 (test fxtc=8508)
--- OUTSIDE RECORDS SUMMARY | 2018-10-23 11:34 | XMS REPORT ---
:1990 Author Organization [employer] Care Team Providers Name Role Phone Mujica, Na Provider Role Unavailable Allergies, Adverse Reactions, Alerts Substance Reaction Event Type tramadol Info Not Available Drug Allergy codeine Info Not Available Drug Allergy MORPHINE Info Not Available Drug Allergy Problems Problem Type Condition Code Onset Dates Condition Status Problem Low back pain M54.5 Active Problem Depression with anxiety F41.8 Active Problem Obese E66.9 Active Problem Hospital discharge follow-up Z09 Active Problem Small bowel obstruction due to K56.50 Active adhesions Problem Anxiety F41.9 Active Problem Iron deficiency anemia, unspecified D50.9 Active iron deficiency anemia type Problem Adult general medical examination Z00.00 Active Problem Spasm of GI tract K31.89 Active Problem History of gastric bypass Z98.84 Active Assessment Adjustment insomnia F51.02 Active Assessment Depression with anxiety F41.8 Active Assessment Hospital discharge follow-up Z09 Active Assessment Spasm of GI tract K31.89 Active Assessment History of gastric bypass Z98.84 Active Assessment Small bowel obstruction due to K56.50 Active adhesions Problem PTSD (post-traumatic stress F43.10 Active disorder) Medications Medication Code Code Instructions Start End Status Dosage System Date Date Zanaflex [facility] 09679921520 2 MG Orally Active 1 capsule Three times a as needed day Sonata [facility] 61549948929 10 MG Orally Active 1 capsule Once a day at bedtime as needed Hyoscyamine [facility] 71363687923 0.125 MG Orally May 01May Active 1 tablet on Sulfate every 4 hrs 2017, the tongue 2017 and allow to dissolve as needed Mirtazapine ND 37939971742 15 MG Orally May 01, Active 1 tablet at Once a day 2018 bedtime Ferrous Sulfate ND 34156032740 325 (65 Fe) MG Active 1 tablet Orally Once a day Results No Known Results Summary Purpose [employer] Submission
--- OUTSIDE RECORDS SUMMARY | 2018-10-23 11:34 | XMS REPORT ---
:1990 Author Organization [employer] Care Team Providers Name Role Phone Mujica, Na Provider Role Unavailable Allergies, Adverse Reactions, Alerts Substance Reaction Event Type tramadol Info Not Available Drug Allergy codeine Info Not Available Drug Allergy MORPHINE Info Not Available Drug Allergy Problems Problem Type Condition Code Onset Dates Condition Status Problem Adult general medical examination Z00.00 Active Problem Anxiety F41.9 Active Problem History of gastric bypass Z98.84 Active Problem Adjustment insomnia F51.02 Active Assessment Depression with anxiety F41.8 Active Problem History of small bowel obstruction Z87.19 Active Assessment History of gastric bypass Z98.84 Active Assessment History of small bowel obstruction Z87.19 Active Problem Vitamin D deficiency E55.9 Active Problem Spasm of GI tract K31.89 Active Problem Hospital discharge follow-up Z09 Active Problem Vitamin B12 deficiency (dietary) D51.8 Active anemia Problem Small bowel obstruction due to K56.50 Active adhesions Assessment Vitamin B12 deficiency (dietary) D51.8 Active anemia Assessment Spasm of GI tract K31.89 Active Assessment Vitamin D deficiency E55.9 Active Assessment Adjustment insomnia F51.02 Active Problem Low back pain M54.5 Active Problem Obese E66.9 Active Problem Depression with anxiety F41.8 Active Problem PTSD (post-traumatic stress F43.10 Active disorder) Problem Iron deficiency anemia, unspecified D50.9 Active iron deficiency anemia type Medications Medication Code Code Instructions Start End Status Dosage System Date Sonata [facility] 32086138603 10 MG Orally Active 1 capsule Once a day at bedtime as needed Zanaflex [facility] 23521468961 2 MG Orally Active 1 capsule Three times a as needed day Cyanocobalamin [facility] 32866789750 1000 MCG/ML May 18Jul Active 1 ml Injection IM 2017 10, once a month 2017 Mirtazapine ND 29143899926 15 MG Orally Active 1 tablet Once a day at bedtime Ferrous Sulfate ND 27405199987 325 (65 Fe) MG Active 1 tablet Orally Once a day Hyoscyamine [facility] 13494508879 0.125 MG Orally Active 1 tablet Sulfate every 4 hrs on the tongue and allow to dissolve as needed Results No Known Results Summary Purpose eClinicalWorks Submission
--- OUTSIDE RECORDS SUMMARY | 2018-10-23 11:34 | XMS REPORT ---
[...] End Status Dosage System Date Date Ferrous [facility] 71097702405 325 (65 Fe) MG Active 1 tablet Sulfate Orally Once a day Zanaflex [facility] 67681714388 2 MG Orally Active 1 capsule Three times a as needed day Sonata [facility] 70173486752 10 MG Orally Active 1 capsule Once a day at bedtime as needed Results No Known Results Summary Purpose [employer]Works Submission
[2018-10-23] MEDS ORDERED: Ringers Lactate 1,000 ML IV ONE (11:52)
[2018-10-23 12:33] LABS: Specific Gravity 1.025 (1.005-1.030)
[2018-10-23] MEDS ORDERED: PROPOFOL 200 MG/20 ML VIAL IV ONE ×2 (12:39→13:11)
[2018-10-23] MEDS ORDERED: LIDOCAINE 1% MPF 5 ML VIAL ONE (12:41)
--- NOTE | 2018-10-23 23:56 | OP ---
Surgeon: Oracio Alcantara MD Procedure Performed: Esophagogastroduodenoscopy. Performing Physician: Oracio Alcantara M.D. Indication For Procedure: Abdominal pain, iron deficiency anemia. Plan For Anesthesia: Monitored anesthesia care. Complexity: Average. Technique: After obtaining informed consent from the patient and explaining risks and complications which include but are not limited to bleeding, infection, perforation, and anesthesia complications, the patient was placed in a left lateral position and sedation was given. From then on, the scope wa s advanced into the mouth and carefully guided up till the jejunum. After the completion of examinat ion and diagnostic maneuvers, the scope and equipment were withdrawn and the procedure was terminated in a safe manner. Findings: Esophagus: In the proximal and mid esophagus, there was evidence of mild candidal esophag itis. Biopsies were taken. In the distal esophagus, the Z-line appeared irregular. Biopsies were t aken. As far as a gastric examination is concerned, there was only a small remnant gastric pouch aft er the surgery. Mild inflammation was seen in the mucosa; this was biopsied. The anastomosis appear ed healthy without any ulceration. The small bowel/jejunum were examined and appeared normal. Biops ies taken to rule out celiac disease. Complications: None. Tolerance To Anesthesia: Excellent. Postoperative Diagnoses: January esophagitis, gastritis, post gastric bypass surgery. Plan: 1.Await pathology results. 2.Oral fluconazole 200 mg daily for 10 days. 3.Oral PPI omeprazole 40 mg once a day. 4.As the upper does not explain the anemia, we will recommend colonoscopy. US/MODL Voice ID: [id number] Report ID: [id number]
== END 2018-10-23 13:15 | disposition home or self-care (01) ==
LOC: OR 11:30
PROVIDERS: ATTEND Internal Medicine Gastroenterology
PROC: 0DB68ZX Excision of Stomach, Via Natural or Artificial Opening Endoscopic, Diagnostic (ICD-10-PCS; 2018-10-23)
PROC: 0DB28ZX Excision of Middle Esophagus, Via Natural or Artificial Opening Endoscopic, Diagnostic (ICD-10-PCS; 2018-10-23)
PROC: 0DB38ZX Excision of Lower Esophagus, Via Natural or Artificial Opening Endoscopic, Diagnostic (ICD-10-PCS; principal; 2018-10-23 12:30)
DX: K29.50 Unspecified chronic gastritis without bleeding (principal); K21.0 Gastro-esophageal reflux disease with esophagitis; B37.81 Candidal esophagitis; D50.9 Iron deficiency anemia, unspecified; Z98.84 Bariatric surgery status; Z88.6 Allergy status to analgesic agent; Z80.41 Family history of malignant neoplasm of ovary; Z82.49 Family history of ischemic heart disease and other diseases of the circulatory system
CPT/HCPCS: 81025; 88305; 88312; 88313; J2704

== ENCOUNTER 2018-12-12 06:42 | Day surgery (SDC) | payer OTHER ==
--- OUTSIDE RECORDS SUMMARY | 2018-12-12 06:45 | XMS REPORT | Clinical Summary ---
:1990 Author Organization [facility] Address [address] [place] [address] Care Team Providers Name Role Phone Annemarie Mujica DO Primary Care Provider Allergies Active Allergy Reactions Severity Noted Date Comments Codeine 01/14/2016 Swelling Morphine 01/14/2016 Hives Hydrocodone-Acetaminophen 11/28/2017 Nausea Tramadol 01/14/2016 Hives Medications Medication Sig Dispensed Refills Start Date End Date Status pantoprazole (PROTONIX) Take 40 mg by 0 Active 40 MG EC tablet mouth daily. famotidine (PEPCID) 20 Take 20 mg by 0 Active MG tablet mouth 2 (two) times a day. BISMUTH SUBSALICYLATE Take by mouth. 0 Active (MAALOX TOTAL RELIEF, BISMUTH, ORAL) calcium carbonate (TUMS) Chew 1 tablet 0 Active 200 mg calcium (500 mg) daily. chewable tablet MULTIVITAMIN ORAL Take by mouth. 0 Active CALCIUM Take by mouth. 0 Active CARBONATE/VITAMIN D3 (CALCIUM 500 WITH D ORAL) CYANOCOBALAMIN, VITAMIN Take by mouth. 0 Active B-12, (VITAMIN B-12 ORAL) FERROUS SULFATE (IRON Take 29 mg by 0 Active ORAL) mouth. LACTOBACILLUS Take by mouth. 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 Last Filed Vital Signs Not on file Plan of Treatment Health Maintenance Due Date Last Done Comments CERVICAL CANCER SCREENING 2009 INFLUENZA VACCINE 06/07/2018 Results Not on fileafter 12/11/2017 Insurance Payer Benefit Plan / Group Subscriber ID Type Phone Address COMMERCIAL MISC MISC COMMERCIAL xxxxxxxxxxx Commercial Advance Directives Patient has advance care planning documents on file. For more information, please contact:Giancarlo [id number] [place] [address]
--- OUTSIDE RECORDS SUMMARY | 2018-12-12 06:46 | XMS REPORT ---
[...] End Status Dosage System Date Date Zanaflex [facility] 64891134237 2 MG Orally Active 1 capsule Three times a as needed day Sonata [facility] 04023880580 10 MG Orally Active 1 capsule Once a day at bedtime as needed Hyoscyamine [facility] 12055690658 0.125 MG Orally May 01May Active 1 tablet on Sulfate every 4 hrs 2017, the tongue 2017 and allow to dissolve as needed Mirtazapine ND 79385976619 15 MG Orally May 01, Active 1 tablet at Once a day 2018 bedtime Ferrous Sulfate ND 92203768098 325 (65 Fe) MG Active 1 tablet Orally Once a day Results No Known Results Summary Purpose eClinicalWorks Submission
--- OUTSIDE RECORDS SUMMARY | 2018-12-12 06:46 | XMS REPORT ---
[...] End Status Dosage System Date Date Ferrous [facility] 84650129796 325 (65 Fe) MG Active 1 tablet Sulfate Orally Once a day Zanaflex [facility] 64112043231 2 MG Orally Active 1 capsule Three times a as needed day Sonata [facility] 22331963193 10 MG Orally Active 1 capsule Once a day at bedtime as needed Results No Known Results Summary Purpose eClinicalWorks Submission
--- OUTSIDE RECORDS SUMMARY | 2018-12-12 06:46 | XMS REPORT ---
:1990 [facility] Address [address] [place] [address] Care Team Providers Name Role Phone REYNALDO [...] Comments SODIUM (BEAKER) (test 139 meq/L 136-145 ejuo=201) POTASSIUM (BEAKER) (test 3.9 meq/L 3.5-5.1 kbfw=934) CHLORIDE (BEAKER) (test 104 meq/L 98-107 fnih=341) CO2 (BEAKER) (test 28 meq/L 22-29 dlbd=887) BLOOD UREA NITROGEN 6 mg/dL 7-21 (BEAKER) (test pssh=563) CREATININE (BEAKER) (test 0.75 mg/dL 0.57-1.25 jrrp=205) GLUCOSE RANDOM (BEAKER) 112 mg/dL 70-105 (test tdfr=123) CALCIUM (BEAKER) (test 8.8 mg/dL 8.4-10.2 dopq=282) EGFR (BEAKER) (test 110 mL/min/1.73 sq m ESTIMATED GFR IS NOT xbru=9554) ACCURATE CREATININE CLEARANCE IN PREDICTING GLOMERULAR FILTRATION RATE. ESTIMATED GFR IS NOT APPLICABLE FOR DIALYSIS PATIENTS. CBC W/PLT COUNT & AUTO [id number] 05:48:00 Test Item Value Reference Range Comments WHITE BLOOD CELL COUNT (BEAKER) (test srso=515) 4.4 K/ L 3.5-10.5 RED BLOOD CELL COUNT (BEAKER) (test nwvw=562) 4.12 M/ L 3.93-5.22 HEMOGLOBIN (BEAKER) (test ueci=525) 12.9 GM/DL 11.2-15.7 HEMATOCRIT (BEAKER) (test rekj=052) 39.9 % 34.1-44.9 MEAN CORPUSCULAR VOLUME (BEAKER) (test fibr=782) 96.8 fL 79.4-94.8 MEAN CORPUSCULAR HEMOGLOBIN (BEAKER) (test 31.3 pg 25.6-32.2 csyf=321) MEAN CORPUSCULAR HEMOGLOBIN CONC (BEAKER) (test 32.3 GM/DL 32.2-35.5 kzgq=026) RED CELL DISTRIBUTION WIDTH (BEAKER) (test 14.5 % 11.7-14.4 kxfw=156) PLATELET COUNT (BEAKER) (test csqb=588) 185 K/CU MM 150-450 MEAN PLATELET VOLUME (BEAKER) (test jzwt=478) 9.6 fL 9.4-12.3 NUCLEATED RED BLOOD CELLS (BEAKER) (test 0 /100 WBC 0-0 rkqk=794) NEUTROPHILS RELATIVE PERCENT (BEAKER) (test 61 % eanq=632) LYMPHOCYTES RELATIVE PERCENT (BEAKER) (test 29 % fzba=929) MONOCYTES RELATIVE PERCENT (BEAKER) (test 8 % fmyj=965) EOSINOPHILS RELATIVE PERCENT (BEAKER) (test 2 % gdpq=336) BASOPHILS RELATIVE PERCENT (BEAKER) (test 0 % pnvf=716) NEUTROPHILS ABSOLUTE COUNT (BEAKER) (test 2.69 K/ L 1.56-6.13 glpu=558) LYMPHOCYTES ABSOLUTE COUNT (BEAKER) (test 1.29 K/ L 1.18-3.74 yvvn=468) MONOCYTES ABSOLUTE COUNT (BEAKER) (test 0.35 K/ L 0.24-0.36 ruyh=836) EOSINOPHILS ABSOLUTE COUNT (BEAKER) (test 0.09 K/ L 0.04-0.36 qodf=244) BASOPHILS ABSOLUTE COUNT (BEAKER) (test 0.01 K/ L 0.01-0.08 fsuj=940) IMMATURE GRANULOCYTES-RELATIVE PERCENT (BEAKER) 0 % 0-1 (test ejmp=3058) BASIC METABOLIC [id number] 06:47:00 Test Item Value Reference Range Comments SODIUM (BEAKER) (test 136 meq/L 136-145 qkuo=114) POTASSIUM (BEAKER) (test 3.9 meq/L 3.5-5.1 ztus=551) CHLORIDE (BEAKER) (test 106 meq/L 98-107 msow=912) CO2 (BEAKER) (test 24 meq/L 22-29 zrtd=962) BLOOD UREA NITROGEN 4 mg/dL 7-21 (BEAKER) (test uknf=535) CREATININE (BEAKER) (test 0.74 mg/dL 0.57-1.25 bvoa=258) GLUCOSE RANDOM (BEAKER) 82 mg/dL 70-105 (test cxtt=961) CALCIUM (BEAKER) (test 8.6 mg/dL 8.4-10.2 bbin=606) EGFR (BEAKER) (test 112 mL/min/1.73 sq m ESTIMATED GFR IS NOT ddvn=5912) ACCURATE CREATININE CLEARANCE IN PREDICTING GLOMERULAR FILTRATION RATE. ESTIMATED GFR IS NOT APPLICABLE FOR DIALYSIS PATIENTS. CBC W/PLT COUNT & AUTO [id number] 06:13:00 Test Item Value Reference Range Comments WHITE BLOOD CELL COUNT (BEAKER) (test dafv=245) 3.1 K/ L 3.5-10.5 RED BLOOD CELL COUNT (BEAKER) (test cpsz=286) 3.94 M/ L 3.93-5.22 HEMOGLOBIN (BEAKER) (test sxvb=893) 12.3 GM/DL 11.2-15.7 HEMATOCRIT (BEAKER) (test knmr=936) 37.9 % 34.1-44.9 MEAN CORPUSCULAR VOLUME (BEAKER) (test hswf=521) 96.2 fL 79.4-94.8 MEAN CORPUSCULAR HEMOGLOBIN (BEAKER) (test 31.2 pg 25.6-32.2 bpyp=196) MEAN CORPUSCULAR HEMOGLOBIN CONC (BEAKER) (test 32.5 GM/DL 32.2-35.5 czvz=189) RED CELL DISTRIBUTION WIDTH (BEAKER) (test 14.6 % 11.7-14.4 xtsv=562) PLATELET COUNT (BEAKER) (test kdjw=496) 194 K/CU MM 150-450 MEAN PLATELET VOLUME (BEAKER) (test xjng=420) 10.0 fL 9.4-12.3 NUCLEATED RED BLOOD CELLS (BEAKER) (test 0 /100 WBC 0-0 ktmn=426) NEUTROPHILS RELATIVE PERCENT (BEAKER) (test 48 % yzxd=623) LYMPHOCYTES RELATIVE PERCENT (BEAKER) (test 36 % elpy=864) MONOCYTES RELATIVE PERCENT (BEAKER) (test 12 % yolb=992) EOSINOPHILS RELATIVE PERCENT (BEAKER) (test 4 % aver=394) BASOPHILS RELATIVE PERCENT (BEAKER) (test 1 % swji=320) NEUTROPHILS ABSOLUTE COUNT (BEAKER) (test 1.50 K/ L 1.56-6.13 sxpl=678) LYMPHOCYTES ABSOLUTE COUNT (BEAKER) (test 1.12 K/ L 1.18-3.74 prej=509) MONOCYTES ABSOLUTE COUNT (BEAKER) (test 0.38 K/ L 0.24-0.36 txkg=671) EOSINOPHILS ABSOLUTE COUNT (BEAKER) (test 0.11 K/ L 0.04-0.36 zacs=639) BASOPHILS ABSOLUTE COUNT (BEAKER) (test 0.02 K/ L 0.01-0.08 bsdc=578) IMMATURE GRANULOCYTES-RELATIVE PERCENT (BEAKER) 0 % 0-1 (test jybw=4714) U/S, ABDOMINAL, [id number] 05:20:00Reason for exam:->evaluate gall stone diseaseFINAL REPORT [...] with cortical thickness of 1.6 cm. Left ubkupo33.8 x 6.8 x 5.9 cm with cortical thickness of 2 cm. cm. Normal echogenicity . No shadowing calculus or hydronephrosis. IVC/Aorta: Segments partially seen. Unremarkable. Impression: Sonographically normal gallbladder. No biliary ductal dilatation. Signed: Joyce Vaz MDReport Verified Date/Time: 04/13/2018 05:20 :11 Reading Location: [facility] C013T Transitional Reading Room BASIC METABOLIC [id number] 04:02:00 Test Item Value Reference Range Comments SODIUM (BEAKER) (test 137 meq/L 136-145 fruq=634) POTASSIUM (BEAKER) (test 3.9 meq/L 3.5-5.1 tqnt=430) CHLORIDE (BEAKER) (test 104 meq/L 98-107 zeoj=885) CO2 (BEAKER) (test 26 meq/L 22-29 ayqf=693) BLOOD UREA NITROGEN 8 mg/dL 7-21 (BEAKER) (test hmax=195) CREATININE (BEAKER) (test 0.69 mg/dL 0.57-1.25 pari=013) GLUCOSE RANDOM (BEAKER) 84 mg/dL 70-105 (test ddqa=137) CALCIUM (BEAKER) (test 8.7 mg/dL 8.4-10.2 xhpz=059) EGFR (BEAKER) (test 121 mL/min/1.73 sq m ESTIMATED GFR IS NOT bttf=7581) ACCURATE CREATININE CLEARANCE IN PREDICTING GLOMERULAR FILTRATION RATE. ESTIMATED GFR IS NOT APPLICABLE FOR DIALYSIS PATIENTS. CBC W/PLT COUNT & AUTO [id number] 03:47:00 Test Item Value Reference Range Comments WHITE BLOOD CELL COUNT (BEAKER) (test cviz=321) 5.4 K/ L 3.5-10.5 RED BLOOD CELL COUNT (BEAKER) (test rasx=210) 3.89 M/ L 3.93-5.22 HEMOGLOBIN (BEAKER) (test dber=351) 12.2 GM/DL 11.2-15.7 HEMATOCRIT (BEAKER) (test utqc=172) 37.3 % 34.1-44.9 MEAN CORPUSCULAR VOLUME (BEAKER) (test ltfl=594) 95.9 fL 79.4-94.8 MEAN CORPUSCULAR HEMOGLOBIN (BEAKER) (test 31.4 pg 25.6-32.2 xqvr=214) MEAN CORPUSCULAR HEMOGLOBIN CONC (BEAKER) (test 32.7 GM/DL 32.2-35.5 fdnw=697) RED CELL DISTRIBUTION WIDTH (BEAKER) (test 14.6 % 11.7-14.4 aihv=777) PLATELET COUNT (BEAKER) (test areb=224) 206 K/CU MM 150-450 MEAN PLATELET VOLUME (BEAKER) (test twji=673) 10.0 fL 9.4-12.3 NUCLEATED RED BLOOD CELLS (BEAKER) (test 0 /100 WBC 0-0 gpfj=678) NEUTROPHILS RELATIVE PERCENT (BEAKER) (test 58 % fywo=225) LYMPHOCYTES RELATIVE PERCENT (BEAKER) (test 29 % daiu=449) MONOCYTES RELATIVE PERCENT (BEAKER) (test 12 % xhwf=387) EOSINOPHILS RELATIVE PERCENT (BEAKER) (test 1 % kjzq=126) BASOPHILS RELATIVE PERCENT (BEAKER) (test 0 % rcfj=517) NEUTROPHILS ABSOLUTE COUNT (BEAKER) (test 3.13 K/ L 1.56-6.13 yoqr=328) LYMPHOCYTES ABSOLUTE COUNT (BEAKER) (test 1.56 K/ L 1.18-3.74 sxwd=683) MONOCYTES ABSOLUTE COUNT (BEAKER) (test 0.64 K/ L 0.24-0.36 tzic=240) EOSINOPHILS ABSOLUTE COUNT (BEAKER) (test 0.06 K/ L 0.04-0.36 pcpd=357) BASOPHILS ABSOLUTE COUNT (BEAKER) (test 0.01 K/ L 0.01-0.08 tftd=621) IMMATURE GRANULOCYTES-RELATIVE PERCENT (BEAKER) 0 % 0-1 (test wxfw=4075) CT, [id number] 22:44:00Reason for exam:->ABDOMINAL PAINReason for exam :->BACK [...] MDReport Verified Date/Time: 04/11/2018 22:44:10 Reading Location: [facility] C013W Consult Reading Room [id number] 21:11:00 Test Item Value Reference Range Comments LIPASE (BEAKER) (test xkmb=397) 18 U/L 8-78 BASIC METABOLIC [id number] 21:11:00 Test Item Value Reference Range Comments SODIUM (BEAKER) (test 137 meq/L 136-145 kxnn=652) POTASSIUM (BEAKER) (test 4.0 meq/L 3.5-5.1 pnmz=339) CHLORIDE (BEAKER) (test 102 meq/L 98-107 yzzy=836) CO2 (BEAKER) (test 26 meq/L 22-29 rwgu=562) BLOOD UREA NITROGEN 10 mg/dL 7-21 (BEAKER) (test vgrw=457) CREATININE (BEAKER) (test 0.76 mg/dL 0.57-1.25 ssyw=090) GLUCOSE RANDOM (BEAKER) 95 mg/dL 70-105 (test dvmb=362) CALCIUM (BEAKER) (test 9.3 mg/dL 8.4-10.2 tbqe=034) EGFR (BEAKER) (test 108 mL/min/1.73 sq m ESTIMATED GFR IS NOT cbad=5867) ACCURATE CREATININE CLEARANCE IN PREDICTING GLOMERULAR FILTRATION RATE. ESTIMATED GFR IS NOT APPLICABLE FOR DIALYSIS PATIENTS. HEPATIC FUNCTION [id number] 21:11:00 Test Item Value Reference Range Comments TOTAL PROTEIN (BEAKER) (test bofd=186) 8.1 gm/dL 6.0-8.3 ALBUMIN (BEAKER) (test gjuv=9409) 4.7 g/dL 3.5-5.0 BILIRUBIN TOTAL (BEAKER) (test fryq=995) 0.6 mg/dL 0.2-1.2 BILIRUBIN DIRECT (BEAKER) (test jjrx=574) 0.3 mg/dL 0.1-0.5 ALKALINE PHOSPHATASE (BEAKER) (test mwfw=193) 110 U/L 40-150 AST (SGOT) (BEAKER) (test qebz=772) 15 U/L 5-34 ALT (SGPT) (BEAKER) (test qayf=675) 16 U/L 6-55 SCREEN, [id number] 21:09:00 Test Item Value Reference Range Comments TEST URINE (BEAKER) (test ztgx=015) Negative URINALYSIS W/ REFLEX URINE [id number] 21:07:00 Test Item Value Reference Range Comments COLOR (BEAKER) (test neqa=170) Yellow CLARITY (BEAKER) (test dumx=794) Hazy SPECIFIC GRAVITY UA (BEAKER) (test acfp=328) 1.024 1.001-1.035 PH UA (BEAKER) (test qjne=879) 6.0 5.0-8.0 PROTEIN UA (BEAKER) (test izei=082) 30 mg/dL Negative GLUCOSE UA (BEAKER) (test wugj=545) Negative Negative KETONES UA (BEAKER) (test cccn=718) 10 mg/dL Negative BILIRUBIN UA (BEAKER) (test oghd=476) Negative Negative BLOOD UA (BEAKER) (test infs=733) Negative Negative NITRITE UA (BEAKER) (test ljrx=329) Negative Negative LEUKOCYTE ESTERASE UA (BEAKER) (test btyq=687) Moderate Negative UROBILINOGEN UA (BEAKER) (test rddo=584) 2.0 mg/dL 0.2-1.0 RBC UA (BEAKER) (test jojw=068) 3 /HPF WBC UA (BEAKER) (test fsmx=199) 5 /HPF MUCUS (BEAKER) (test opzv=0231) Many SQUAMOUS EPITHELIAL (BEAKER) (test jzjv=232) 7 /HPF CRYSTALS, URINE (BEAKER) (test cnqf=7339) Rare SOURCE(BEAKER) (test lspi=7143) CBC W/PLT COUNT & AUTO [id number] 20:55:00 Test Item Value Reference Range Comments WHITE BLOOD CELL COUNT (BEAKER) (test jvuj=851) 6.4 K/ L 3.5-10.5 RED BLOOD CELL COUNT (BEAKER) (test leas=001) 4.48 M/ L 3.93-5.22 HEMOGLOBIN (BEAKER) (test pzxj=549) 14.0 GM/DL 11.2-15.7 HEMATOCRIT (BEAKER) (test pnbu=492) 43.0 % 34.1-44.9 MEAN CORPUSCULAR VOLUME (BEAKER) (test rccd=913) 96.0 fL 79.4-94.8 MEAN CORPUSCULAR HEMOGLOBIN (BEAKER) (test 31.3 pg 25.6-32.2 dmxo=787) MEAN CORPUSCULAR HEMOGLOBIN CONC (BEAKER) (test 32.6 GM/DL 32.2-35.5 itga=670) RED CELL DISTRIBUTION WIDTH (BEAKER) (test 14.7 % 11.7-14.4 jizf=625) PLATELET COUNT (BEAKER) (test valt=634) 230 K/CU MM 150-450 MEAN PLATELET VOLUME (BEAKER) (test wkky=795) 9.4 fL 9.4-12.3 NUCLEATED RED BLOOD CELLS (BEAKER) (test 0 /100 WBC 0-0 zugp=312) NEUTROPHILS RELATIVE PERCENT (BEAKER) (test 61 % okga=333) LYMPHOCYTES RELATIVE PERCENT (BEAKER) (test 27 % wwwu=423) MONOCYTES RELATIVE PERCENT (BEAKER) (test 11 % qatd=955) EOSINOPHILS RELATIVE PERCENT (BEAKER) (test 1 % abjb=406) BASOPHILS RELATIVE PERCENT (BEAKER) (test 1 % knyi=601) NEUTROPHILS ABSOLUTE COUNT (BEAKER) (test 3.88 K/ L 1.56-6.13 yxyp=246) LYMPHOCYTES ABSOLUTE COUNT (BEAKER) (test 1.72 K/ L 1.18-3.74 sqzd=942) MONOCYTES ABSOLUTE COUNT (BEAKER) (test 0.70 K/ L 0.24-0.36 twxq=284) EOSINOPHILS ABSOLUTE COUNT (BEAKER) (test 0.05 K/ L 0.04-0.36 xyri=121) BASOPHILS ABSOLUTE COUNT (BEAKER) (test 0.03 K/ L 0.01-0.08 nttn=882) IMMATURE GRANULOCYTES-RELATIVE PERCENT (BEAKER) 0 % 0-1 (test vybb=0879)
--- OUTSIDE RECORDS SUMMARY | 2018-12-12 06:46 | XMS REPORT | Clinical Summary ---
:1990 Author Organization [facility] Address [address] [place] [address] Care Team Providers Name Role Phone Annemarie [...] Sahar, MD Kulkarni, Reagan Montano MD after 12/11/2017 Social History Tobacco Use Types Packs/Day Years [...] procedure are in the results section. after 12/11/2017 Results CBC with platelet count + automated diff (04/14/2018 5:12 AM CDT)Only the most recent of4 resultswithin the time period is included. WBC 4.4 3.5 - 10.5 K/L [facility] RBC 4.12 3.93 - 5.22 M/L [facility] Hemoglobin 12.9 11.2 - 15.7 GM/DL [facility] Hematocrit 39.9 34.1 - 44.9 % [facility] MCV 96.8 (H) 79.4 - 94.[address] [facility] MCH 31.3 25.6 - 32.[address] [facility] MCHC 32.3 32.2 - 35.5 GM/DL [facility] RDW 14.5 (H) 11.7 - 14.4 % [facility] Platelets 185 150 - 450 K/CU MM [facility] MPV 9.6 9.4 - 12.[address] [facility] nRBC 0 0 - 0 /[address] [facility] % Neutros 61 % [facility] % Lymphs 29 % [facility] % Monos 8 % [facility] % Eos 2 % [facility] % Baso 0 % [facility] # Neutros 2.69 1.56 - 6.13 K/L [facility] # Lymphs 1.29 1.18 - 3.74 K/L [facility] # Monos 0.35 0.24 - 0.36 K/L [facility] # Eos 0.09 0.04 - 0.36 K/L [facility] # Baso 0.01 0.01 - 0.08 K/L [facility] Immature Granulocytes-Relative 0 0 - 1 % [facility] Specimen Blood Performing Organization Address City/State/Zipcode Phone Number [facility] [address] [place] [address] [phone] CENTER Basic metabolic panel (04/14/2018 5:12 AM CDT)Only the most recent of4 resultswithin the time period is included. Sodium 139 136 - 145 meq/L [facility] Potassium 3.9 3.5 - 5.1 meq/L [facility] Chloride 104 98 - 107 meq/L [facility] CO2 28 22 - 29 meq/L [facility] BUN 6 (L) 7 - 21 mg/dL [facility] Creatinine 0.75 0.57 - 1.25 mg/dL [facility] Glucose 112 (H) 70 - 105 mg/dL [facility] Calcium 8.8 8.4 - 10.2 mg/dL [facility] EGFR 110Comment: ESTIMATED GFR IS mL/min/1.73 sq m [facility] NOT ACCURATE CREATININE [facility] CLEARANCE IN PREDICTING GLOMERULAR FILTRATION RATE. ESTIMATED GFR IS NOT APPLICABLE FOR DIALYSIS PATIENTS. Specimen Blood Performing Organization Address City/State/Zipcode Phone Number [facility] [address] [place] [address] [phone] CENTER US abdomen complete (04/13/2018 4:00 AM CDT) Narrative Performed At FINAL REPORT [facility] Ultrasound of the Abdomen, complete Clinical History:evaluate [...] MD Report Verified Date/Time:04/13/2018 05:20:11 Reading Location: [address] Transitional Reading Room Procedure Note Interface, [...] Report Verified Date/Time: 04/13/2018 05:20:11 Reading Location: [facility] C0[facility] Transitional Reading Room Performing Organization Address City/State/Zipcode Phone Number [facility] abdomen pelvis with IV contrast (04/11/2018 [...] MD Report Verified Date/Time:04/11/2018 22:44:10 Reading Location: [address] Consult Reading Room Procedure Note Interface, [...] Report Verified Date/Time: 04/11/2018 22:44:10 Reading Location: [facility] C013W Consult Reading Room Performing Organization Address City/[facility] Phone Number [facility] Urinalysis w/Microscopic + Reflex to Culture - Clear Catch (04/11/2018 8:58 PM CDT) Color, UA Yellow [facility] Clarity, UA Hazy [facility] Specific [place], UA 1.024 1.001 - 1.[address] [facility] pH, UA 6.0 5.0 - 8.[address] [facility] Protein, UA 30 mg/dL (A) Negative [facility] Glucose, UA Negative Negative [facility] Ketones, UA 10 mg/dL (A) Negative [facility] Bilirubin, UA Negative Negative [facility] Blood, UA Negative Negative [facility] Nitrite, UA Negative Negative [facility] Leukocytes, UA Moderate (A) Negative [facility] Urobilinogen, UA 2.0 (H) 0.2 - 1.0 mg/dL [facility] RBC, UA 3 /HPF [facility] WBC, UA 5 /HPF [facility] Mucus Many [facility] Squam Epithel, UA 7 /HPF [facility] Crystals, Urine Rare [facility] Specimen Source [facility] Specimen Urine - Urine, Clean Catch Performing Organization Address [facility]/Zipcode Phone Number [address] [address] [phone] [place] screen, urine (04/11/2018 8:58 PM CDT) Preg Test, Ur Negative [facility] Specimen Urine - Urine, Clean Catch Performing Organization Address [facility] Phone Number [address] [address] [place] Urine culture (04/11/2018 8:58 PM CDT) Result No growth [facility] Specimen Urine - Urine, Clean Catch Performing Organization Address [facility] Phone Number [address] [address] [place] Lipase (04/11/2018 8:45 PM CDT) Lipase 18 8 - 78 U/L [facility] Specimen Blood Performing Organization Address [facility] Phone Number [address] [address] [place] Hepatic function panel (04/11/2018 8:45 PM CDT) Protein, Total 8.1 6.0 - 8.3 gm/dL [facility] Albumin 4.7 3.5 - 5.0 g/dL [facility] Total Bilirubin 0.6 0.2 - 1.2 mg/dL [facility] Bilirubin, Direct 0.3 0.1 - 0.5 mg/dL [facility] Alkaline Phosphatase 110 40 - 150 U/L [facility] AST 15 5 - 34 U/L [facility] ALT 16 6 - 55 U/L [facility] Specimen Blood Performing Organization Address [facility] Phone Number [address] [address] CENTER after 12/11/2017 Insurance Payer Benefit Plan / Group Subscriber ID Type Phone Address [facility] xxxxxxxxxxx PPO Advance Directives For more information, please contact:[address] [phone] Code Status Date Activated Date Inactivated Comments Full Code 04/12/2018 12:52 AM 04/15/2018 3:45 PM This code status was determined by: Patient
--- OUTSIDE RECORDS SUMMARY | 2018-12-12 06:46 | XMS REPORT ---
[...] Start End Status Dosage System Date Sonata [facility] 69562941142 10 MG Orally Active 1 capsule Once a day at bedtime as needed Zanaflex [facility] 98596253469 2 MG Orally Active 1 capsule Three times a as needed day Cyanocobalamin [facility] 44025908218 1000 MCG/ML May 18Jul Active 1 ml Injection IM 2017 10, once a month 2017 Mirtazapine ND 12333849428 15 MG Orally Active 1 tablet Once a day at bedtime Ferrous Sulfate ND 25479452210 325 (65 Fe) MG Active 1 tablet Orally Once a day Hyoscyamine [facility] 07880756471 0.125 MG Orally Active 1 tablet Sulfate every 4 hrs on the tongue and allow to dissolve as needed Results No Known Results Summary Purpose eClinicalWorks Submission
--- OUTSIDE RECORDS SUMMARY | 2018-12-12 06:47 | XMS REPORT ---
:1990 Author Organization eClinicalWorks Care Team Providers Name Role Phone Mujica, Na Provider Role Unavailable Allergies No Known Allergies Problems Problem Type Condition Code Onset Dates Condition Status Problem Hospital discharge follow-up Z09 Active Problem Small bowel obstruction due to K56.50 Active adhesions Problem Spasm of GI tract K31.89 Active Problem Chronic fatigue R53.82 Active Problem Hypoglycemia E16.2 Active Problem Iron deficiency anemia secondary to D50.8 Active inadequate dietary iron intake Problem History of small bowel obstruction Z87.19 Active Problem Vitamin B12 deficiency (dietary) D51.8 Active anemia Problem Vitamin D deficiency E55.9 Active Problem Adjustment insomnia F51.02 Active Problem PTSD (post-traumatic stress F43.10 Active disorder) Problem Low back pain M54.5 Active Problem Iron deficiency anemia, unspecified D50.9 Active iron deficiency anemia type Problem Adult general medical examination Z00.00 Active Problem Obese E66.9 Active Problem History of gastric bypass Z98.84 Active Problem Depression with anxiety F41.8 Active Problem Anxiety F41.9 Active Medications Medication Code Code Instructions Start End Status Dosage System Date Date Metoclopramide [facility] 47671386744 10 MG Orally Dec 01, Active as HCl every 6 hours 2019 directed as needed Results No Known Results Summary Purpose eClinicalWorks Submission
[2018-12-12] MEDS ORDERED: Ringers Lactate 1,000 ML IV ONE (07:16)
[2018-12-12] MEDS ORDERED: LIDOCAINE 1% MPF 5 ML VIAL ONE (08:01)
[2018-12-12] MEDS ORDERED: PROPOFOL 200 MG/20 ML VIAL IV ONE ×2 (08:01→09:15)
[2018-12-12] MEDS ORDERED: GLYCOPYRROLATE 0.2 MG/ML SYR ONE (08:01)
--- NOTE | 2018-12-14 03:41 | OP ---
Surgeon: Oracio Alcantara MD Procedure To Be Performed: Colonoscopy. Indication For Procedure: Iron-deficiency anemia, bowel habit change. Plan For Anesthesia: Monitored anesthesia care. Complexity: Average. Technique: After obtaining informed consent from the patient explaining risks and complications, whi ch include but are not limited to bleeding, infection, perforation, and anesthesia complications, the patient was placed in the left lateral position and sedation was given. A digital rectal exam was p erformed, and then the scope was advanced into the rectum and carefully guided up till the terminal i leum. Subsequently, the scope was withdrawn while carefully examining the mucosa. The cecum was yandel ntified by the appendiceal orifice and ileocecal valve. Scope withdrawal time was 11 minutes. The q uality of prep appeared to be segmental poor with some areas with not good visualization, however saira sonable views were obtained to exclude a mass lesion. Findings: Limited prep in various areas of the colon. No gross obstructive mass lesion was seen. R andom biopsies were taken to rule out microscopic colitis. Retroflexion revealed grade 1 internal he morrhoids. In the terminal ileum, there was very mild granular mucosa that was seen. Biopsies taken from this area as well. Complications: None. Tolerance To Anesthesia: Excellent. Postoperative Diagnosis: Possible ileitis, otherwise normal colonoscopy. However, limited by prep. Plan: 1.Await pathology results. 2.Follow up in the GI clinic. 3.EGD with small bowel biopsies if not already scheduled. If EGD has been done, we will proceed wit h small bowel follow-through. /JOSE Voice ID: [id number] Report ID: [id number]
== END 2018-12-12 09:32 | disposition home or self-care (01) ==
LOC: OR 06:42
PROVIDERS: ATTEND Internal Medicine Gastroenterology
PROC: 0DBE8ZX Excision of Large Intestine, Via Natural or Artificial Opening Endoscopic, Diagnostic (ICD-10-PCS; 2018-12-12)
PROC: 0DBB8ZX Excision of Ileum, Via Natural or Artificial Opening Endoscopic, Diagnostic (ICD-10-PCS; principal; 2018-12-12 08:00)
DX: D50.9 Iron deficiency anemia, unspecified (principal); K64.0 First degree hemorrhoids; Z98.84 Bariatric surgery status
CPT/HCPCS: 81025; 88305; J2704